=== PATIENT | female | born 1980 | race Caucasian/White ===

== ENCOUNTER 2020-08-14 14:25 | Outpatient (REF) | payer OTHER, SELFPAY ==
[2020-08-14 16:20] LABS: MANUAL DIFF FLAG NO
[2020-08-14 16:29] LABS: Basophils Percent Auto 0.8 % (0-2); Eosinophils Absolute Auto 0.1 X10*3/uL (0.0-0.4); Eosinophils Percent Auto 2.8 % (0-4); Hemoglobin 12.8 g/dl (12.0-16.0); Lymphocytes Absolute Auto 1.9 X10*3/uL (1.2-4.9); Lymphocytes Percent Auto 40.1 % (20-40); Mean Corpuscular HGB Conc 33.7 g/dl (31.0-35.0); Mean Corpuscular Hemoglobin 30.5 pg (27.0-33.0); Mean Corpuscular Volume 90.7 fL (80-98); Mean Platelet Volume 10.7 fL (9.4-12.3); Monocytes Absolute Auto 0.3 X10*3/uL (0.1-1.2); Neutrophils Absolute Auto 2.3 X10*3/uL (2.0-8.3); Neutrophils Percent Auto 49.3 % (45-73); Platelet Count 273 X10*3/uL (160-400); Red Blood Count 4.19 X10*6/uL (4.20-5.50); Red Cell Distribution Width 12.4 % (11.0-16.0); White Blood Count 4.7 X10*3/uL (4.8-10.8)
[2020-08-16 14:37] LABS: Immunoglobulin G 634 mg/dL (600-1640)
== END 2020-08-14 14:26 | disposition home or self-care (01) ==
LOC: HO.LAB 14:25
PROVIDERS: PCP Internal Medicine; Visit Provider Internal Medicine Pulmonary Disease
DX: Z91.09 Other allergy status, other than to drugs and biological substances (principal); J18.9 Pneumonia, unspecified organism; J32.9 Chronic sinusitis, unspecified; E53.8 Deficiency of other specified B group vitamins; J44.9 Chronic obstructive pulmonary disease, unspecified
CPT/HCPCS: 36415; 82784; 82785; 85025; 86003; 99202

== ENCOUNTER 2020-10-02 08:04 | Outpatient (REF) | payer OTHER, SELFPAY ==
--- NOTE | 2020-10-02 14:51 | PFT_ITS ---
INDICATION: COPD. SPIROMETRY: The FEV1 to FVC of 75% with an FEV1 of 3.28 L which is 113% predicted and FVC of 4.28 L which is 123% predicted. Post bronchodilator, the patient did have a trend response to bronchodilators with an improvement in the FEV1 by 10%. To note, the pre FEV1 to FVC was 69% suggesting reversible obstruction. The maximum voluntary ventilation 116% predicated. Lung volumes: Total lung capacity is 127% of predicted and a residual volume of 134% predicted. DIFFUSION CAPACITY: DLCO of 100% predicted. COMPARISON: None. INTERPRETATION: There appears to be reversible obstructive ventilatory defect consistent with the diagnosis of asthma. The patient does have evidence of small airway disease which also could be attributed to asthma. Maximal voluntary ventilation within normal limits. The patient also has significant air trapping and hyperinflation due to her obstructive airway disease. Diffusion capacity is within normal limits. Clinical correlation warranted. MD LULU Infante/MARIAM / [id number]
== END 2020-10-02 08:05 | disposition home or self-care (01) ==
LOC: HO.RESP 08:04
PROVIDERS: Visit Provider Internal Medicine Pulmonary Disease
DX: J44.9 Chronic obstructive pulmonary disease, unspecified (principal)
CPT/HCPCS: 94060; 94727; 94729; 99212

== ENCOUNTER 2021-02-16 09:38 | Outpatient (REF) | payer OTHER, SELFPAY ==
[2021-02-18 09:05] LABS: Folate 11.6 ng/mL (> or = 4.0); Vitamin B12 226 pg/mL (200-900)
[2021-02-20 21:48] LABS: Intrinsic Factor Antibodies Negative (Negative)
[2021-02-21 11:32] LABS: Parietal Cell Antibody <=20.0 Unit (<=20.0)
== END 2021-02-16 09:39 | disposition home or self-care (01) ==
LOC: HO.LAB 09:38
PROVIDERS: PCP Internal Medicine; Visit Provider Internal Medicine
DX: E53.8 Deficiency of other specified B group vitamins (principal)
CPT/HCPCS: 36415; 82607; 82746; 83516; 86340

== ENCOUNTER 2021-08-26 10:14 | Outpatient (REF) | payer OTHER, SELFPAY ==
--- NOTE | 2021-08-26 10:18 | ECG_ITS ---
Test Reason : palpitations Blood Pressure : / mmHG Vent. Rate : 055 BPM Atrial Rate : 055 BPM P-R Int : 122 ms QRS Dur : 080 ms QT Int : 424 ms P-R-T Axes : 071 077 076 degrees QTc Int : 405 ms Sinus bradycardia Otherwise normal ECG No previous ECGs available Referred By: Mandy Stovall Electronically Signed By:HARRIETT HILLIARD MD
== END 2021-08-26 10:15 | disposition home or self-care (01) ==
LOC: HO.LAB 10:14
PROVIDERS: PCP Internal Medicine; Visit Provider Internal Medicine
DX: R00.2 Palpitations (principal); R00.1 Bradycardia, unspecified; M79.621 Pain in right upper arm; Z23 Encounter for immunization
CPT/HCPCS: 93005

== ENCOUNTER 2021-08-28 08:34 | Outpatient (REF) | payer OTHER, SELFPAY ==
[2021-08-28 11:30] LABS: MANUAL DIFF FLAG NO
[2021-08-28 11:42] LABS: Basophils Percent Auto 0.6 % (0-2); Eosinophils Absolute Auto 0.2 X10*3/uL (0.0-0.4); Eosinophils Percent Auto 2.8 % (0-4); Hematocrit 40.5 % (37.0-47.0); Hemoglobin 13.6 g/dl (12.0-16.0); Imm Gran Abs Auto 0.01 X10*3/uL (0.00-0.03); Imm Gran Pct Auto 0.1 % (0.0-0.4); Lymphocytes Absolute Auto 2.1 X10*3/uL (1.2-4.9); Mean Corpuscular HGB Conc 33.6 g/dl (31.0-35.0); Mean Corpuscular Hemoglobin 30.1 pg (27.0-33.0); Mean Corpuscular Volume 89.6 fL (80.0-98.0); Mean Platelet Volume 10.3 fL (9.4-12.3); Monocytes Absolute Auto 0.4 X10*3/uL (0.1-1.2); Monocytes Percent Auto 5.3 % (2-11); Neutrophils Absolute Auto 4.4 x10*3/uL (2.0-8.3); Neutrophils Percent Auto 62.2 % (45-73); Platelet Count 256 X10*3/uL (160-400); Red Blood Count 4.52 X10*6/uL (4.20-5.50); Red Cell Distribution Width 12.6 % (11.0-16.0); White Blood Count 7.1 X10*3/uL (4.8-10.8)
[2021-08-28 12:05] LABS: Alanine Aminotransferase 13 U/L (0-31); Albumin Level 4.7 g/dL (3.5-5.0); Alkaline Phosphatase 46 U/L (39-117); Anion Gap 15 (12-20); Aspartate Amino Transferase 15 U/L (5-31); Bilirubin Total 0.5 mg/dL (0.0-1.0); Blood Urea Nitrogen 13 mg/dL (9-16); Calcium 9.4 mg/dL (8.4-10.2); Carbon Dioxide 23 mmol/L (22-29); Chloride 104 mmol/L (96-108); Cholesterol 171 mg/dL; Estimated Glomerular Filt Rate > 60; Glucose Fasting 93 mg/dL (60-99); HDL Cholesterol 63 mg/dL; LDL Cholesterol Calculated 90 mg/dl; Potassium 4.5 mmol/L (3.3-5.1); Sodium 137 mmol/L (135-145); Total Protein 6.7 g/dL (6.5-8.0); Triglycerides 91 mg/dL
[2021-08-28 12:19] LABS: TSH reflex Free T4 (Prenatal) 0.71 uIU/mL (0.32-4.0)
[2021-08-28 12:34] LABS: Folate 10.2 ng/mL (> or = 4.0); Vitamin B12 231 pg/mL (200-900)
== END 2021-08-28 08:35 | disposition home or self-care (01) ==
LOC: HO.HMGCLDS 08:34
PROVIDERS: PCP Internal Medicine; Visit Provider Internal Medicine
DX: R00.2 Palpitations (principal); E53.8 Deficiency of other specified B group vitamins; D72.819 Decreased white blood cell count, unspecified
CPT/HCPCS: 36415; 80053; 80061; 82607; 82746; 85025

== ENCOUNTER 2021-09-11 14:18 | Outpatient (REF) | payer OTHER, SELFPAY ==
--- NOTE | ~2021-09-11 | MM_ITS ---
EXAMINATION: MM DIAGNOSTIC DIGITAL BREAST TOMOSYNTHESIS, BILATERAL US DIAGNOSTIC ULTRASOUND BREAST, RIGHT CLINICAL INFORMATION: Right breast fullness posterior upper outer quadrant for approximately 2 years. No prior breast imaging. Age 41. No known family history breast cancer. The lifetime risk of breast cancer based on the Tyrer-Cuzick Model is 7%. COMPARISON: None (current study represents initial baseline exam). TECHNIQUE: Digital breast tomosynthesis is performed in both the craniocaudal and mediolateral oblique views along with computer-aided detection (CAD). Synthesized 2D images are generated from the tomosynthesis. Ultrasound upper outer quadrant right breast is performed along with imaging of the axilla. Grayscale imaging and color Doppler are performed without and with harmonics. FINDINGS: There are scattered areas of fibroglandular density (ACR BI-RADS breast composition Category b). There are bilateral implants. The implant contours are smooth. There is no mass or architectural abnormality. No abnormal calcifications. The skin contours are smooth. No skin thickening or coarsening of the Michael's ligaments. The axilla are unremarkable. Ultrasound demonstrates no cystic or solid mass or architectural abnormality. No focal duct ectasia. No lymphadenopathy. No skin thickening or edema tracking in soft tissue planes. Results are discussed with the patient at time of visit. MM/MM tomosynthesis diag imp BI IMPRESSION: No mammographic evidence of malignancy or inflammatory changes. Unremarkable right ultrasound. ASSESSMENT: BI-RADS 1: Negative RECOMMENDATION: 1. Patient should be managed based on the clinical impression. If clinically indicated, further evaluation may be considered with surgical consult. Decision to proceed with biopsy should be based on clinical grounds and degree of clinical concern. 2. Otherwise, routine annual screening mammography. This patient's information was entered into a reminder system with a target due date for their next mammogram.
== END 2021-09-11 14:19 | disposition home or self-care (01) ==
LOC: HO.MAMMO 14:18
PROVIDERS: PCP Internal Medicine; Visit Provider Internal Medicine
DX: N63.11 Unspecified lump in the right breast, upper outer quadrant (principal)
CPT/HCPCS: 76642; 77062; 77066

== ENCOUNTER → 2021-09-12 11:04 | Outpatient (REF) | payer OTHER, SELFPAY ==
--- NOTE | 2021-09-12 11:07 | HM_ITS ---
Conclusion: 1. Patient was monitored for total period of 6 days and 23 hours 2. Baseline was normal sinus rhythm with average heart rate 81 beats per minute 3. No significant pauses or bradycardia noted 4. No significant tachycardia noted 5. Overall 55 PACs accounting for less than 0.01% account for very rare PACs 6. patient reported 16 total events all of which correlated with sinus rhythm MTDD
== END ==
LOC: HO.CARD 11:04
PROVIDERS: Visit Provider Internal Medicine
DX: R00.2 Palpitations (principal)
CPT/HCPCS: 93242

== ENCOUNTER 2021-10-07 18:09 | Outpatient (REF) | payer OTHER, SELFPAY ==
[2021-10-07 18:37] LABS: Amphetamine Screen Urine Not Detected (Not Detect); Barbiturates, Urine Not Detected (Not Detect); Benzodiazepines Screen Urine Not Detected (Not Detect); Cannabinoid Screen Urine Not Detected (Not Detect); Cocaine Screen Urine Not Detected (Not Detect); Fentanyl, urine Not Detected (Not Detect); Opiate Screen Urine Not Detected (Not Detect); Phencyclidine Screen Urine Not Detected (Not Detect)
[2021-10-10 07:27] LABS: Codeine, Ur NEGATIVE; Hydrocodone, Ur NEGATIVE; Oxycodone, Ur NEGATIVE
[2021-10-10 07:28] LABS: Hydromorphone, Ur NEGATIVE; Morphine, Ur NEGATIVE; Oxymorphone, Ur NEGATIVE
[2021-10-10 07:29] LABS: Norhydrocodone, Ur NEGATIVE; Noroxycodone, Ur NEGATIVE
[2021-10-10 07:30] LABS: Alprazolam, GCMS Urine NEGATIVE; Lorazepam GCMS Urine NEGATIVE; Nordiazepam, GCMS Urine NEGATIVE; Oxazepam, GCMS Urine NEGATIVE
[2021-10-10 07:31] LABS: Alphahydroxytriazolam, GCMS Ur NEGATIVE; Temazepam, GCMS Urine NEGATIVE
[2021-10-10 07:32] LABS: Alphahydroxymidazolam,GCMS Ur NEGATIVE
[2021-10-10 07:33] LABS: Aminoclonazepam, GCMS Urine 27; Flurazepam Metabolite,GCMS Ur NEGATIVE
== END 2021-10-07 18:10 | disposition home or self-care (01) ==
LOC: HO.LNP 18:09
PROVIDERS: Visit Provider Internal Medicine
DX: F41.9 Anxiety disorder, unspecified (principal); F41.1 Generalized anxiety disorder; J45.50 Severe persistent asthma, uncomplicated; Z91.09 Other allergy status, other than to drugs and biological substances
CPT/HCPCS: 80307; 80346; 80364; 80365

== ENCOUNTER → 2021-10-10 13:13 | Outpatient (BNVA) | payer OTHER, SELFPAY | PROVIDERS: PCP Internal Medicine; Referring Provider Internal Medicine; Visit Provider Internal Medicine | DX: R00.2 Palpitations (principal); R07.89 Other chest pain; R06.02 Shortness of breath; F41.1 Generalized anxiety disorder | CPT/HCPCS: 99212 ==

== ENCOUNTER 2021-11-26 10:41 | Outpatient (REF) | payer OTHER, SELFPAY ==
[2021-11-26 12:38] LABS: HBS Num1 0.31 mIU/mL (0-7.99); HBc Num1 0.03 S/CO (0.00-0.79); Hepatitis B Core Antibody Nonreactive (Nonreactive); ~Hepatitis B Surface Antibody NONREACTIVE (Nonreactive)
[2021-11-26 12:42] LABS: HBsAGNum1 0.19 S/CO (0.00-0.99); Hepatitis B Surface Antigen Negative (Negative)
[2021-11-27 11:01] LABS: Mumps Virus IgG Antibody <9.00 AU/mL; Rubella IgG Antibody 3.33 Index; Rubeola IgG (Measles) <13.50 AU/mL
[2021-11-28 18:22] LABS: TS Negative Control Passed; TS Panel A 0; TS Panel B 0; TS Positive Control Passed; TSpotTB Negative (Negative)
== END 2021-11-26 10:42 | disposition home or self-care (01) ==
LOC: HO.HMGCLDS 10:41
PROVIDERS: Visit Provider Nurse Practitioner Family
DX: Z01.84 Encounter for antibody response examination (principal); Z11.1 Encounter for screening for respiratory tuberculosis
CPT/HCPCS: 36415; 86481; 86704; 86706; 86735; 86762; 86765; 86787; 87340

== ENCOUNTER → 2022-07-07 08:34 | Outpatient (BNVA) | payer SELFPAY | PROVIDERS: PCP Internal Medicine; Visit Provider Internal Medicine | DX: Z02.79 Encounter for issue of other medical certificate (principal) ==

== ENCOUNTER → 2022-07-24 12:50 | Outpatient (REF) | payer OTHER, SELFPAY ==
--- NOTE | 2022-07-24 12:58 | CA_ITS ---
Transthoracic Echocardiogram Patient (Last, First, Middle): Smitha Martinez, Gender: Female Date of : 1980 Age: 42 Procedure Date: 07/24/2022 Procedure Type: Transthoracic Echocardiogram Location: OP Height: 160.02 cm Weight: 61.24 kg BSA: 1.64 m2 Heart Rate: 63 bpm BP: 100 / 70 mmHg Payer Specialist: PAT Buckner MD: Mandy Stovall MD [employer] Media Specialist: Jamie Jones MD Symptoms: R01.1 - Cardiac murmur, unspecified Study Quality: Adequate ECG Rhythm: Sinus Conclusions: - Normal study Findings Left Ventricle Normal left ventricular size, thickness, and systolic function. The visually estimated ejection fraction is between 60-65%. Diastolic function is normal for age. Right Ventricle Normal right ventricular cavity size and systolic function. Atria Both atria are normal in size. There is no evidence of interatrial shunt. Aortic Valve Normal aortic valve structure and function. There is no aortic valve stenosis. There is no aortic valve regurgitation. Mitral Valve Normal mitral valve structure and function. There is trace mitral valve regurgitation. There is no mitral valve stenosis. Pulmonic Valve The pulmonic valve is likely normal. Tricuspid Valve Normal tricuspid valve structure. There is trace tricuspid valve regurgitation. The right ventricular systolic pressure is normal. The right ventricular systolic pressure is 13 mmHg. Normal right atrial pressure. There is no evidence of pulmonary hypertension. Great Vessels All visible segments of the aorta are normal in size. The pulmonary artery was not well visualized. Venous The inferior vena cava is normal in size and collapses greater than 50% with inspiration. Pericardium/Pleural There is no evidence of pericardial effusion. Prior Study Comparison No significant change compared to prior study dated: 11/02/2019. Measurements 2D Linear Measurements IVSd: 0.70 0.6-0.9/0.6-1.0 cm LVIDd: 3.97 3.9-5.3/4.2-5.9 cm LVIDd Index: 2.42 2.4-3.2/2.2-3.1 cm/m2 LVIDs: 2.26 2.0-3.6 cm LVPWd: 0.81 0.7-1.1 cm LA Diam: 3.10 2.7-3.8/3.0-4.0 cm LAIDs Index: 1.89 1.5-2.3 cm/m2 LV Mass: 106.45 67-162/88-224 g LV Mass Index: 64.91 43-95/49-115 g/m2 LVOT Diam: 1.90 3.0+(-)1.3 cm 2D Systolic Function EF 4C: 61.50 >55% EF 2C: 62.70 >55% EF BiP: 62.60 >55% Mitral Valve MV Pk E: 0.82 MV PK A: 0.72 MV Decel Time: 188.00 E/A: 1.10 E'Lateral: 12.80 E'Medial: 13.20 E/E' Med: 6.20 E/E' Lat: 6.40 PHT: 55.00 MVA PHT: 4.00 Decel Reagan: 4.36 Aortic Valve AoV Pk Ian: 1.43 AoV Mn Ian: 0.98 AoV VTI: 0.32 AoV Pk Grad: 8.00 Aov Mn Grad: 5.00 NIGEL Cont.VTI: 1.71 LVOT LVOT Pk Ian: 0.97 LVOT Mn Ian: 0.67 LVOT VTI: 0.19 LVOT Pk Grad: 4.00 LVOT Mn Grad: 2.00 LVOT Diam: 1.90 LVOT Area: 2.84 Diastolic Function MV Pk E: 0.82 MV Pk A: 0.72 E/A: 1.10 E'Medial: 13.20 E/E' Med: 6.20 E' Laterial: 12.80 E/E' Lat: 6.40 Right Ventricle TAPSE (mm): 26.10 TVS' Ian: 12.80 Tricuspid Valve TR Pk Ian: 1.59 TR Pk Grad: 10.00 RA Press: 3.00 RVSP: 13.00 Great Vessels Aorta Sinus of Valsalva: 3.00 2.0-3.5 cm Ao Asc: 3.00 2.1-3.4 cm Pulmonary Valve PV Pk Ian: 1.03 Peak PV Grad: 4.00 Updated in Other Vendor System with Status of Final Jamie Jones MD electronically signed on 07/25/2022 1:44:48 PM with status of Final
== END ==
LOC: HO.CARD 12:50
PROVIDERS: PCP Internal Medicine; Visit Provider Internal Medicine
DX: R01.1 Cardiac murmur, unspecified (principal)
CPT/HCPCS: 93306

== ENCOUNTER 2022-07-30 13:52 | Outpatient (REF) | payer OTHER, SELFPAY ==
--- NOTE | 2022-07-30 08:30 | EMG_ITS ---
Please see scanned EMG / Nerve Conduction Report. MTDD
== END 2022-07-30 13:53 | disposition home or self-care (01) ==
LOC: HO.NEURO 13:52
PROVIDERS: PCP Internal Medicine; Visit Provider Internal Medicine
DX: R20.0 Anesthesia of skin (principal)
CPT/HCPCS: 95885; 95909

== ENCOUNTER 2023-07-30 10:27 | Outpatient (AMB) | payer OTHER, SELFPAY ==
--- NOTE | 2023-07-30 10:27 | MHC.PC.OV ---
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 Accompanied by: Self / Same As Patient Allergies hydroxyzine Adverse Reaction (Intermediate, Verified 07/30/23 10:36) sweating Medication List - Last Reconciled 07/30/23 by Mandy Stovall MD No Known Home Meds Tobacco use date assessed: 07/30/23 Dental Screening Dental Screen Date: 07/30/23 Did you have a dental visit in the last 12 months?: Yes Did you have a dental problem in the last 6 months where you did not have access to dental care?: No Was dental information given to patient?: Patient has dentist HPI HPI Comments History of Present Illness Details This is a 43-year-old female that comes for her physical exam. She complains of muscle cramps in right leg that makes the foot invert. She also has skin lesions and would like to see dermatology. She also has right eye which deviates and wants to see Ophthalmology. She has smoke for 39 years and would like lung cancer screening. I told her that it started at 48 years old but she insists. Last mammogram was 2020 and she will call for an appointment. Last Pap smear was less than a year ago at [facility] as per patient and was normal. She has 0 [facility] Gastroenterology and they schedule colonoscopy for December 2023. She is a little anxious and says that winter is more difficult for her. [facility] Medical History (Updated 07/30/23 @ 11:03 by Mandy Stovall MD) Asthma-COPD overlap syndrome Anxiety Insomnia CALLIE (generalized anxiety disorder) Mild recurrent major depression Pain in right axilla Leukopenia Palpitations Celiac disease Blurry vision Vitamin B 12 deficiency Recurrent sinus infections Surgical History H/O breast augmentation Family History (Updated 07/30/23 @ 10:41 by Mandy Stovall MD) Father Diabetes Hypertension CVD (cardiovascular disease) Myocardial infarction Mother Hypertension CVD (cardiovascular disease) Depression Mental health disorder Myocardial infarction Brother In good health Brother In good health Brother Bipolar 1 disorder Sister In good health Substance use disorder Sister In good health Sister In good health Son In good health Daughter In good health Social History (Updated 07/30/23 @ 10:42 by Mandy Stovall MD) Housing: House Alcohol intake: current Alcohol intake frequency: a few times a month Alcohol type: wine and hard liquor Patient Tobacco Use Status: Current everyday Tobacco user Tobacco use type: Cigarette Cigarettes Per Day: 6 e-Cigarette/Vaping Use: Never Used Second Hand Smoke Exposure: No service: No Current occupational status: employed Current occupational exposures/hazards: No Cognitive needs: No Hearing needs: No Vision needs: Yes (glasses) Questionnaire PHQ-9 Over the last 2 weeks, how often have you been bothered by any of the following problems? 1. Little interest or pleasure in doing things: not at all 2. Feeling down, depressed, or hopeless: several days 3. Trouble falling or staying asleep, or sleeping too much: not at all 4. Feeling tired or having little energy: not at all 5. Poor appetite or overeating: several days 6. Feeling bad about yourself - or that you are a failure or have let yourself or your family down: not at all 7. Trouble concentrating on things, such as reading the newspaper or watching television: not at all 8. Moving or speaking so slowly that other people could have noticed. Or the opposite - being so fidgety or restless that you have been moving around a lot more than usual: not at all 9. Thoughts that you would be better off or of hurting yourself in some way: not at all Total score: 2 Depression Screening Interpretation: Negative Depression Screening Done: Yes 87534 - PHQ-9 Billing: Yes Source: Developed by Drs. Jeremiah Layne, Maine Khan, Henry Patel and colleagues, with an educational abdoulaye from [employer]. Thrive Questionnaire Date Thrive assessed: 07/30/23 I am a: Patient What is your living situation today?: I have a steady place to live Within the past 12 months, did the food you bought not last and you didn't have the money to get more?: Never true Within the past 12 months, did you worry whether your food would run out before you got money to buy more?: Never true Do you have trouble paying for medicines?: No Do you have trouble getting transportation to medical appointments?: No Do you have trouble paying your heating and electricity bill?: No Do you have trouble taking care of your child, family member or friend?: No Do you have trouble with day-to-day activities such as bathing, preparing meals, shopping, managing finances, etc.?: No Are you currently unemployed and looking for a job?: No Are you interested in more education?: No Please select the resources that you would like help with: None Currently or been in a relationship where the following occur: no concerns reported AUDIT C Alcohol Use Questionnaire (AUDIT-C) 1. How often do you have a drink containing alcohol?: Never Total Score: 0 CALLIE-7 AMB Questionnaire CALLIE-7 Date CALLIE - 7 assessed: 07/30/23 Feeling nervous, anxious, or on edge: 1 = Several days Not being able to stop or control worryin = Not at all Worrying too much about different things: 0 = Not at all Trouble relaxin = Several days Being so restless that it is hard to sit still: 0 = Not at all Becoming easily annoyed or irritable: 0 = Not at all Feeling afraid as if something awful might happen: 0 = Not at all Total CALLIE-7 score (0-4 normal; 5-9 mild; 10-14 moderate; 15-21 severe): 2 Source: Developed by Drs. Jeremiah Layne, Maine Khan, Henry Patel and colleagues, with an educational abdoulaye from [employer]. CALLIE-7 Assessment Billing CALLIE-7 Assessment Tool: CALLIE-7 Assessment 84228 Review of Systems Const All systems reviewed & are unremarkable except as noted in HPI and below Eyes Reports no additional complaints, Denies change in vision and Denies other visual disturbances Card Denies chest pain at rest, Denies chest pain with activity, Denies edema, Denies irregular heart rhythm, Denies claudication, Denies dyspnea, Denies dyspnea on exertion, Denies orthopnea, Denies paroxysmal nocturnal dyspnea and Denies slow heart rate Resp Denies cough, Denies dyspnea and Denies dyspnea on exertion GI Denies abdominal pain, Denies change in bowel habits, Denies excessive flatus, Denies nausea and Denies vomiting Denies urinary incontinence, Denies urinary hesitancy and Denies urinary urgency Musc Denies abnormal gait, Denies atrophy, Denies deformity, Denies limited range of motion and Reports muscle cramps Skin/Breast Denies bleeding lesions, Denies changing lesions and Denies rash Neuro Denies abnormal gait and Denies lack of coordination Psych Reports anxiety Physical exam (Primary Care) Vital Signs: Last Vital Signs BP 110/70 07/30/23 10:28 BMI result Body Mass Index 22.7 Tobacco/Smoking Status: Tobacco use Status Tobacco use date assessed 07/30/23 07/30/23 10:35 Patient Tobacco Use Status Current everyday Tobacco 07/30/23 10:42 Tobacco use type Cigarette 07/30/23 10:42 e-Cigarette/Vaping Use Never Used 07/30/23 10:42 PHQ-9: PHQ-9 Score PHQ-9: Total score 2 07/30/23 10:44 Depression Screening Interpretation: Negative Thrive Assessment: Date of Thrive Assessment Date Thrive assessed 07/30/23 07/30/23 10:35 Currently or been in a relationship where the following occur: no concerns reported Const Orientation/consciousness: patient oriented x3 HENMT Head: Yes normal to inspection, Yes normocephalic and Yes atraumatic Ears: external ears normal Eyes General: appearance normal, both eyes and all related structures Eyelids: Yes eyelids normal Conjunctivae: conjunctivae normal Neck Neck: Yes normal visual inspection and Yes supple Resp Effort & Inspection: normal respiratory effort Auscultation: clear to auscultation bilaterally Cardio Jugular venous distension: no JVD Rate: regular rate Rhythm: regular rhythm Heart sounds: S1 normal heart sound present and S2 normal heart sound present GI Inspection: Yes normal to inspection Palpation (GI): Soft to palpation and nontender Auscultation: normal bowel sounds Skin General skin exam: no rashes or lesions noted Neuro General: patient oriented x3 and no focal motor deficits Extrem General: Yes full ROM Psych Appearance: grossly normal Office Procedures Flu Questionnaire Does the patient have a severe egg allergy?: No Immunizations flu vacc [id number] 6mos up(PF) 60 mcg(15 mcgx4)/0.5 mL IM syringe Performing Provider: Mandy Stovall MD Performing Location: [facility] Documented (not given) by: MERLYN Kumar on 07/30/23 10:36 Reason Not Given: Patient Refused Assessment and Plan Assessment & Plan (1) Physical exam: Code(s): Z00.00 - Encounter for general adult medical examination without abnormal findings Plan: Repeat in a year. Orders: Orders Lipid Panel Today Z00.00 - Encounter for general adult medical examination without abnormal findings Influenza [id number] Immunization Today Z23 - Encounter for immunization Magnesium Today R25.2 - Cramp and spasm Comprehensive [place]. 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
[2023-07-30 10:28] VITALS: BP 110/70; BMI 22.7
== END 2023-07-30 10:55 | disposition home or self-care (01) ==
LOC: HO.HMGH 10:27
PROVIDERS: PCP Internal Medicine; Visit Provider Internal Medicine
DX: Z00.00 Encounter for general adult medical examination without abnormal findings (principal)
CPT/HCPCS: 99396

== ENCOUNTER 2023-09-09 08:49 | Outpatient (AMB) | payer OTHER, SELFPAY ==
[2023-09-09 09:27] VITALS: BP 116/70; PULSE 71; TEMP 36.6; O2SAT 71; BMI 23.2
--- NOTE | 2023-09-09 09:27 | AM.OFFWIN_ITS ---
Intake Vital Signs 09/09/23 09:27 Height 5 ft 3 in Weight 131 lb BMI 23.2 BP 116/70 Blood Pressure Location Lt brachial Position Sitting Pulse 71 Pulse Source Pulse Oximeter Temp 97.8 F Temp Source Temporal Artery Scan Pulse Oximetry (%) 71 L Oxygen Delivery Method Room Air Intake Visit Reasons: EP ?Sinus [id number] Intake Note: pt is here today for sinus started 2 weeks ago Patient Tobacco Use Status: Current everyday Tobacco user Allergies hydroxyzine Adverse Reaction (Intermediate, Verified 09/09/23 09:58) sweating Medication List - Last Reconciled 09/09/23 by NGOZI Glass-ANABELL No Known Home Meds Do you need a note to return to daycare/school/sports/work: No HPI HPI Comments History of Present Illness Details here today w c/o recurrent sinusitis reports sx present for 2 weeks nasal congestion, pain, pnd, sore throat, ear pain has used otc dayquil, nyquil w/o relief admits to using friends exp amoxicillin for the last few days, last dose last night + current smoker denies fever, chills, headache, chest pain, sob. [facility] Medical History (Updated 09/09/23 @ 10:01 by SHILPA Glass) Asthma-COPD overlap syndrome Anxiety Insomnia CALLIE (generalized anxiety disorder) Mild recurrent major depression Pain in right axilla Leukopenia Palpitations Celiac disease Blurry vision Vitamin B 12 deficiency Recurrent sinus infections Surgical History H/O breast augmentation Family History (Updated 07/30/23 @ 10:41 by Mandy Stovall MD) Father Diabetes Hypertension CVD (cardiovascular disease) Myocardial infarction Mother Hypertension CVD (cardiovascular disease) Depression Mental health disorder Myocardial infarction Brother In good health Brother In good health Brother Bipolar 1 disorder Sister In good health Substance use disorder Sister In good health Sister In good health Son In good health Daughter In good health Social History (Updated 07/30/23 @ 10:42 by Mandy Stovall MD) Housing: House Alcohol intake: current Alcohol intake frequency: a few times a month Alcohol type: wine and hard liquor Patient Tobacco Use Status: Current everyday Tobacco user Tobacco use type: Cigarette Cigarettes Per Day: 6 e-Cigarette/Vaping Use: Never Used Second Hand Smoke Exposure: No service: No Current occupational status: employed Current occupational exposures/hazards: No Cognitive needs: No Hearing needs: No Vision needs: Yes (glasses) Review of Systems Const All systems reviewed & are unremarkable except as noted in HPI and below Physical Exam Vital Signs: Last Vital Signs Temp 97.8 F 09/09/23 09:27 Pulse 71 09/09/23 09:27 BP 116/70 09/09/23 09:27 Pulse Ox 71 L 09/09/23 09:27 Oxygen Delivery Method Room Air 09/09/23 09:27 BMI result Body Mass Index 23.2 Const Other: awake alert nad conjunctiva clear bilat TM intact clear bilat Nares patent, turbinates pale, edematous, + frontal and maxillary sinus tenderness to palp bilat worse on L pharynx + erythema, no exudate no ac adenopathy RRR LS CTAB Assessment & Plan Assessment & Plan (1) Sinusitis: Code(s): J32.9 - Chronic sinusitis, unspecified Qualifiers: Sinusitis location: pansinusitis Chronicity: acute Recurrence: recurrent Qualified Code(s): J01.41 - Acute recurrent pansinusitis Plan: . Plan . Medications: New azithromycin For 250 mg dose pack: take 500 mg today (day 1), then 250 mg for 4 days (days 2-5) PO 5 days 6 tabs 0RF prednisone 20 mg PO DAILY 5 days 5 tabs 0RF Patient Instructions: states does well on above, sent in. avoid nasal decongestants and sprays. ok for flonase and/or saline Coding Level of Care Code Est Pt Level 3 (03224) Diagnoses Acute recurrent pansinusitis J01.41 Sinusitis location: pansinusitis Chronicity: acute Recurrence: recurrent
== END 2023-09-09 09:59 | disposition home or self-care (01) ==
PROVIDERS: PCP Internal Medicine; Visit Provider Nurse Practitioner Family
DX: J01.41 Acute recurrent pansinusitis (principal)
CPT/HCPCS: 99213

== ENCOUNTER 2023-10-27 07:59 | Outpatient (REF) | payer OTHER, SELFPAY ==
[2023-10-27 11:19] LABS: MANUAL DIFF FLAG NO
[2023-10-27 11:23] LABS: Basophils Percent Auto 0.5 % (0-2); Eosinophils Absolute Auto 0.2 X10*3/uL (0.0-0.4); Eosinophils Percent Auto 2.9 % (0-4); Hemoglobin 12.9 g/dl (12.0-16.0); Imm Gran Abs Auto 0.01 X10*3/uL (0.00-0.03); Imm Gran Pct Auto 0.2 % (0.0-0.4); Lymphocytes Absolute Auto 1.3 X10*3/uL (1.2-4.9); Lymphocytes Percent Auto 22.9 % (20-40); Mean Corpuscular HGB Conc 33.1 g/dl (31.0-35.0); Mean Corpuscular Hemoglobin 29.8 pg (27.0-33.0); Mean Corpuscular Volume 90.1 fL (80.0-98.0); Mean Platelet Volume 10.5 fL (9.4-12.3); Monocytes Absolute Auto 0.4 X10*3/uL (0.1-1.2); Monocytes Percent Auto 7.2 % (2-11); Neutrophils Absolute Auto 3.8 x10*3/uL (2.0-8.3); Neutrophils Percent Auto 66.3 % (45-73); Platelet Count 245 X10*3/uL (160-400); Red Blood Count 4.33 X10*6/uL (4.20-5.50); Red Cell Distribution Width 12.8 % (11.0-16.0); White Blood Count 5.8 X10*3/uL (4.8-10.8)
[2023-10-27 11:36] LABS: Alanine Aminotransferase 17 U/L (0-31); Albumin Level 4.2 g/dL (3.5-5.0); Alkaline Phosphatase 42 U/L (39-117); Anion Gap 12 (12-20); Aspartate Amino Transferase 15 U/L (5-31); Bilirubin Total 0.4 mg/dL (0.0-1.0); Blood Urea Nitrogen 13 mg/dL (9-16); Calcium 8.5 mg/dL (8.4-10.2); Carbon Dioxide 26 mmol/L (22-29); Chloride 107 mmol/L (96-108); Cholesterol 195 mg/dL (<200); Estimated Glomerular Filt Rate > 60; Glucose Fasting 89 mg/dL (60-99); HDL Cholesterol 74 mg/dL (>40); LDL Cholesterol Calculated 105 mg/dL (<100); Magnesium 1.9 mg/dL (1.6-2.6); Potassium 4.1 mmol/L (3.3-5.1); Sodium 141 mmol/L (135-145); Total Protein 6.5 g/dL (6.5-8.0); Triglycerides 81 mg/dL (<150)
== END 2023-10-27 08:00 | disposition home or self-care (01) ==
LOC: HO.HMGCLDS 07:59
PROVIDERS: PCP Internal Medicine; Visit Provider Internal Medicine
DX: Z00.00 Encounter for general adult medical examination without abnormal findings (principal); R25.2 Cramp and spasm; D64.9 Anemia, unspecified
CPT/HCPCS: 36415; 80053; 80061; 83735; 85025

== ENCOUNTER 2023-10-30 09:35 | Outpatient (AMB) | payer OTHER, SELFPAY ==
[2023-10-30 10:32] VITALS: BP 122/68; PULSE 77; TEMP 36.8; O2SAT 98; BMI 24.4
--- NOTE | 2023-10-30 10:32 | MHC.OFFWIV ---
Intake Vital Signs 10/30/23 10:32 Height 5 ft 3 in Weight 138 lb BMI 24.4 BP 122/68 Blood Pressure Location Lt brachial Position Sitting Pulse 77 Pulse Source Pulse Oximeter Temp 98.2 F Temp Source Temporal Artery Scan Pulse Oximetry (%) 98 Oxygen Delivery Method Room Air Intake Visit Reasons: EST/sinus pressure([phone]) Intake Note: pt is here today for sinus pressure started 3 weeks ago Patient Tobacco Use Status: Current everyday Tobacco user Allergies hydroxyzine Adverse Reaction (Intermediate, Verified 10/30/23 10:33) sweating Do you need a note to return to daycare/school/sports/work: No HPI HPI Comments History of Present Illness Details 43 y/o female patient who presents to walk in clinic with c/o sinus pressure x 3 weeks. FOR[facility]LY [facility], [facility] Medical History (Updated 10/02/23 @ 10:00 by Mandy Stovall MD) Asthma-COPD overlap syndrome Anxiety Insomnia CALLIE (generalized anxiety disorder) Mild recurrent major depression Pain in right axilla Leukopenia Palpitations Celiac disease Blurry vision Vitamin B 12 deficiency Recurrent sinus infections Surgical History H/O breast augmentation Family History (Updated 07/30/23 @ 10:41 by Mandy Stovall MD) Father Diabetes Hypertension CVD (cardiovascular disease) Myocardial infarction Mother Hypertension CVD (cardiovascular disease) Depression Mental health disorder Myocardial infarction Brother In good health Brother In good health Brother Bipolar 1 disorder Sister In good health Substance use disorder Sister In good health Sister In good health Son In good health Daughter In good health Social History (Updated 07/30/23 @ 10:42 by Mandy Stovall MD) Housing: House Alcohol intake: current Alcohol intake frequency: a few times a month Alcohol type: wine and hard liquor Patient Tobacco Use Status: Current everyday Tobacco user Tobacco use type: Cigarette Cigarettes Per Day: 6 e-Cigarette/Vaping Use: Never Used Second Hand Smoke Exposure: No service: No Current occupational status: employed Current occupational exposures/hazards: No Cognitive needs: No Hearing needs: No Vision needs: Yes (glasses) Review of Systems Const All systems reviewed & are unremarkable except as noted in HPI and below Physical Exam Vital Signs: Last Vital Signs Temp 98.2 F 10/30/23 10:32 Pulse 77 02/16/24 10:32 BP 122/68 10/30/23 10:32 Pulse Ox 98 10/30/23 10:32 Oxygen Delivery Method Room Air 10/30/23 10:32 BMI result Body Mass Index 24.4 Const General: comfortable and no acute distress HEENT Head: Yes normocephalic Ears: external ears normal and TM's normal bilaterally General nose exam: Normal nasal mucous membranes and turbinates present Face and sinus: Yes sinus tenderness Mouth: oropharynx normal and moist mucous membranes Throat: Yes uvula midline Resp Effort & Inspection: normal respiratory effort Auscultation: clear to auscultation bilaterally Cardio Rate: regular rate Rhythm: regular rhythm Assessment & Plan Assessment & Plan (1) Upper respiratory infection: Code(s): J06.9 - Acute upper respiratory infection, unspecified Qualifiers: URI type: acute nasopharyngitis (common cold) Qualified Code(s): J00 - Acute nasopharyngitis [common cold] Plan: - Warm fluids - Rest Acetaminophen for pain relief. Orders: Orders SARS-CoV2/FLU/RSV Today J00 - Acute nasopharyngitis [common cold] Medications: New azithromycin 500 mg PO DAILY 3 days 3 tabs 0RF J00 - Acute nasopharyngitis [common cold] Coding Level of Care Code Est Pt Level 3 (54456) Diagnoses Acute nasopharyngitis J00 URI type: acute nasopharyngitis (common cold) Time Spent (min) 15
== END 2023-10-30 11:44 | disposition home or self-care (01) ==
PROVIDERS: PCP Internal Medicine; Visit Provider Nurse Practitioner Family
DX: J00 Acute nasopharyngitis [common cold] (principal)
CPT/HCPCS: 99213

== ENCOUNTER 2023-10-30 13:38 | Outpatient (REF) | payer OTHER, SELFPAY ==
[2023-10-30 14:30] LABS: Influenza A PCR NEGATIVE (Negative); Influenza B PCR NEGATIVE (Negative); Resp Syncy Virus RNA Qual PCR POSITIVE (Negative); SARS COV2 PCR INHOUSE NEGATIVE (Negative)
== END 2023-10-30 13:39 | disposition home or self-care (01) ==
LOC: HO.LNP 13:38
PROVIDERS: Visit Provider Nurse Practitioner Family
DX: Z11.52 Encounter for screening for COVID-19 (principal); Z20.822 Contact with and (suspected) exposure to COVID-19; J00 Acute nasopharyngitis [common cold]
CPT/HCPCS: 0241U

== ENCOUNTER 2023-11-09 12:54 | Outpatient (REF) | payer OTHER, SELFPAY ==
--- NOTE | ~2023-11-09 | US_ITS ---
EXAMINATION: US SOFT TISSUE NECK CLINICAL INFORMATION: Localized swelling, mass and lump in the neck. COMPARISON: C-spine films dated 12/04/2016. TECHNIQUE: Ultrasound of the neck soft tissues is performed in region of the patient directed area of palpable lump in the anterior midline of the neck, superior to the thyroid gland with high- frequency noble-scale imaging and color Doppler. FINDINGS: In region of the patient's palpable lump in the midline of the upper neck, superior to the thyroid gland, normal lobules of tissue are noted without discrete focal cystic or solid mass seen. No disruption of the tissue planes is seen. US/US soft tiss head and/or neck IMPRESSION: No focal sonographic abnormality seen in region of the patient's palpable lump in the midline of the upper neck. Close clinical correlation and follow-up as clinically appropriate is recommended. Any further assessment of the patient's clinical findings should proceed based on clinical impression.
== END 2023-11-09 12:55 | disposition home or self-care (01) ==
LOC: HO.US 12:54
PROVIDERS: PCP Internal Medicine; Visit Provider Internal Medicine
DX: R22.1 Localized swelling, mass and lump, neck (principal)
CPT/HCPCS: 76536

== ENCOUNTER 2024-04-23 09:20 | Outpatient (AMB) | payer OTHER, SELFPAY ==
[2024-04-23 10:30] VITALS: BP 110/62; PULSE 61; TEMP 36.6; O2SAT 97
--- NOTE | 2024-04-23 10:30 | MHC.OFFWIV ---
Intake Vital Signs 04/23/24 10:30 Height 5 ft 3 in BP 110/62 Blood Pressure Location Lt brachial Position Sitting Pulse 61 Pulse Source Pulse Oximeter Temp 97.9 F Temp Source Oral Pulse Oximetry (%) 97 Oxygen Delivery Method Room Air Intake Visit Reasons: EP Bite Buttocks [phone] Intake Note: pt is here for c/o of a bite on buttocks, states its red and itchy and noticed its been a few days since it started. Patient Tobacco Use Status: Current everyday Tobacco user Allergies hydroxyzine Adverse Reaction (Intermediate, Verified 04/23/24 10:31) sweating Do you need a note to return to daycare/school/sports/work: No HPI EP Bite Buttocks [phone] HPI Details Patient is a 43-year-old female comes to the walk-in clinic complaining of possible insect bite, that is becoming red and itchy over the last few days. She also notices tender lymph nodes to her right groin area, and has associated fatigue. She reports that her right leg is usually her bad one , so she can not report if any pain to the leg is acute due to this issue. No report of weakness, numbness or tingling to the extremity. She denies fever chills, dizziness, cough, nausea vomiting or diarrhea, or other significant associated symptoms. FOR[facility]LY [facility] Medical History Asthma-COPD overlap syndrome Anxiety Insomnia CALLIE (generalized anxiety disorder) Mild recurrent major depression Pain in right axilla Leukopenia Palpitations Celiac disease Blurry vision Vitamin B 12 deficiency Recurrent sinus infections Surgical History H/O breast augmentation Family History Father Diabetes Hypertension CVD (cardiovascular disease) Myocardial infarction Mother Hypertension CVD (cardiovascular disease) Depression Mental health disorder Myocardial infarction Brother In good health Brother In good health Brother Bipolar 1 disorder Sister In good health Substance use disorder Sister In good health Sister In good health Son In good health Daughter In good health Social History Housing: House Alcohol intake: current Alcohol intake frequency: a few times a month Alcohol type: wine and hard liquor Patient Tobacco Use Status: Current everyday Tobacco user Tobacco use type: Cigarette Cigarettes Per Day: 6 e-Cigarette/Vaping Use: Never Used Second Hand Smoke Exposure: No service: No Current occupational status: employed Current occupational exposures/hazards: No Cognitive needs: No Hearing needs: No Vision needs: Yes (glasses) Review of Systems Const All systems reviewed & are unremarkable except as noted in HPI and below Physical Exam Vital Signs: Last Vital Signs Temp 97.9 F 04/23/24 10:30 Pulse 61 04/23/24 10:30 BP 110/62 04/23/24 10:30 Pulse Ox 97 04/23/24 10:30 Oxygen Delivery Method Room Air 04/23/24 10:30 Skin Other: Right inguinal lymphadenopathy apparent Lesions: lesion noted Full body images: 1. 2. To lesions approximately a cm in diameter each to the right buttock, with erythema edema and warmth surrounding and yellowish crusting eschar covering each lesion. Assessment & Plan Assessment & Plan (1) Skin lesion: Code(s): L98.9 - Disorder of the skin and subcutaneous tissue, unspecified Plan: Patient is a 43-year-old female who comes to the walk-in clinic with lesions to her right buttock area, and right inguinal lymphadenopathy. She suspects that she got bit by a spider, and worries about brown recluse bite wounds, as she had been outside at a [employer] prior to finding the lesions. However she does not remember an acute onset of pain that would lead to being bit acutely, unless it happened in her sleep. She also denies any symptoms to the buttock prior to the lesions appearing, so it is unlikely that this is due to shingles. Her lesions appear today as erythematous plaques that are covered with an eschar, and mild erythema edema and warmth surrounding. However photo that she shows of the wound prior to coming in today looks more vesicular and herpetic in nature. Also her systemic symptoms of profound fatigue is more associated with primary viral infection. She reports that she is immunocompromised as she has celiacs disease, and we discussed that immuno compromising conditions do pose greater risk for infections. As I am not entirely sure if the wounds are a viral lesion or a cellulitis, I advised that she start both an antibiotic and an antiviral medication. It is possible that since she has had this for a few days now, that it is too late for an antiviral to have benefit. I also ordered a CBC and HSV labs, which are pending. Due to her lymphadenopathy on that side, and systemic symptoms, I advised that she have follow-up with her primary care early next week. She sees Dr. Mandy Fish who is affiliated with [facility], and I will forward this note to her. Patient knows to follow up herself if symptoms persist or worsen, or to go to the emergency department with worrisome symptoms. Orders: Orders Complete Blood Count Auto Diff Today L03.90 - Cellulitis, unspecified Herpes Simplex Virus Ab IgG Today L98.9 - Disorder of the skin and subcutaneous tissue, unspecified Medications: New valacyclovir 1,000 mg PO TID 21 tabs 0RF 7 days doxycycline hyclate 100 mg PO BID 20 caps 0RF 10 days Coding Level of Care Code Est Pt Level 4 (16860) Diagnoses Skin lesion L98.9
== END 2024-04-23 12:01 | disposition home or self-care (01) ==
PROVIDERS: PCP Internal Medicine; Visit Provider Physician Assistant Medical
DX: L98.9 Disorder of the skin and subcutaneous tissue, unspecified (principal)
CPT/HCPCS: 99051; 99214

== ENCOUNTER 2024-04-23 11:40 | Outpatient (REF) | payer OTHER, SELFPAY ==
[2024-04-23 12:53] LABS: MANUAL DIFF FLAG NO
[2024-04-23 12:56] LABS: Basophils Absolute Auto 0.1 X10*3/uL (0.0-0.2); Basophils Percent Auto 0.9 % (0-2); Eosinophils Absolute Auto 0.2 X10*3/uL (0.0-0.4); Eosinophils Percent Auto 3.4 % (0-4); Hematocrit 38.5 % (37.0-47.0); Imm Gran Abs Auto 0.02 X10*3/uL (0.00-0.03); Imm Gran Pct Auto 0.3 % (0.0-0.4); Lymphocytes Absolute Auto 1.6 X10*3/uL (1.2-4.9); Lymphocytes Percent Auto 28.1 % (20-40); Mean Corpuscular HGB Conc 33.8 g/dl (31.0-35.0); Mean Corpuscular Hemoglobin 30.4 pg (27.0-33.0); Mean Platelet Volume 10.3 fL (9.4-12.3); Monocytes Absolute Auto 0.3 X10*3/uL (0.1-1.2); Monocytes Percent Auto 5.7 % (2-11); Neutrophils Absolute Auto 3.6 x10*3/uL (2.0-8.3); Neutrophils Percent Auto 61.6 % (45-73); Platelet Count 254 X10*3/uL (160-400); Red Blood Count 4.28 X10*6/uL (4.20-5.50); Red Cell Distribution Width 12.7 % (11.0-16.0); White Blood Count 5.8 X10*3/uL (4.8-10.8)
[2024-04-25 17:08] LABS: Herpes Simplex Type 1 IgG 2.43 index
== END 2024-04-23 11:41 | disposition home or self-care (01) ==
LOC: HO.HMGCLDS 11:40
PROVIDERS: Visit Provider Physician Assistant Medical
DX: L98.9 Disorder of the skin and subcutaneous tissue, unspecified (principal); L03.90 Cellulitis, unspecified
CPT/HCPCS: 36415; 85025; 86695; 86696

== ENCOUNTER 2024-08-08 10:09 | Outpatient (AMB) | payer OTHER, SELFPAY ==
--- NOTE | 2024-08-08 10:10 | A.OFFPC_ITS ---
Vital Signs 08/08/24 10:12 Height 5 ft 3 in Weight 128 lb BMI 22.7 BP 120/78 Blood Pressure Location Lt brachial Position Sitting Intake Visit Reasons: annual Intake Note: Patient here for an annual physical exam [employer] Required: No Accompanied by: Self / Same As Patient Allergies hydroxyzine Adverse Reaction (Intermediate, Verified 08/08/24 10:20) sweating Medication List - Last Reconciled 08/08/24 by Mandy Stovall MD No Known Home Meds Tobacco use date assessed: 08/08/24 Dental Screening Dental Screen Date: 08/08/24 Did you have a dental visit in the last 12 months?: Yes Did you have a dental problem in the last 6 months where you did not have access to dental care?: No Was dental information given to patient?: Patient has dentist HPI HPI Comments History of Present Illness Details This is a 44-year-old female that comes for her physical exam. Mammogram done over a year ago was normal and I will order another mammogram. She had a colonoscopy about 10 years ago and was normal as per patient. She prefers to do Cologuard. Last Tdap vaccine was 2013. Last Pap smear was about 2 years ago and was normal as per patient and she will call OBGYN for follow-up. Complains of blurry vision and would like to see Ophthalmology. Due to insurance changing she has not seen Ophthalmology in about 4 years. She has asthma-COPD overlap syndrome and was advised to quit. Saw pulmonology awhile ago and she will let me know if she wants to see them again because she is very busy at work. [facility], [facility] Medical History (Updated 08/08/24 @ 10:49 by Mandy Stovall MD) Asthma-COPD overlap syndrome Anxiety Insomnia CALLIE (generalized anxiety disorder) Mild recurrent major depression Pain in right axilla Leukopenia Palpitations Celiac disease Blurry vision Vitamin B 12 deficiency Recurrent sinus infections Surgical History H/O breast augmentation Family History Father Diabetes Hypertension CVD (cardiovascular disease) Myocardial infarction Mother Hypertension CVD (cardiovascular disease) Depression Mental health disorder Myocardial infarction Brother In good health Brother In good health Brother Bipolar 1 disorder Sister In good health Substance use disorder Sister In good health Sister In good health Son In good health Daughter In good health Social History (Updated 08/08/24 @ 10:47 by Mandy Stovall MD) Housing: House Alcohol intake: current Alcohol intake frequency: a few times a month Alcohol type: wine and hard liquor Patient Tobacco Use Status: Current everyday Tobacco user Tobacco use type: Cigarette Cigarettes Per Day: 2 e-Cigarette/Vaping Use: Never Used Second Hand Smoke Exposure: No service: No Current occupational status: employed Current occupational exposures/hazards: No Cognitive needs: No Hearing needs: No Vision needs: Yes (glasses) Questionnaire PHQ-9 Over the last 2 weeks, how often have you been bothered by any of the following problems? 1. Little interest or pleasure in doing things: not at all 2. Feeling down, depressed, or hopeless: not at all 3. Trouble falling or staying asleep, or sleeping too much: not at all 4. Feeling tired or having little energy: not at all 5. Poor appetite or overeating: not at all 6. Feeling bad about yourself - or that you are a failure or have let yourself or your family down: not at all 7. Trouble concentrating on things, such as reading the newspaper or watching television: not at all 8. Moving or speaking so slowly that other people could have noticed. Or the opposite - being so fidgety or restless that you have been moving around a lot more than usual: not at all 9. Thoughts that you would be better off or of hurting yourself in some way: not at all Total score: 0 Depression Screening Interpretation: Negative Depression Screening Done: Yes 95349 - PHQ-9 Billing: Yes Source: Developed by Drs. Jeremiah Layne, Maine Khan, Henry Patel and colleagues, with an educational abdoulaye from [employer]. Thrive Questionnaire Date Thrive assessed: 08/08/24 I am a: Patient What is your living situation today?: I have a steady place to live Within the past 12 months, did the food you bought not last and you didn't have the money to get more?: Never true Within the past 12 months, did you worry whether your food would run out before you got money to buy more?: Never true Do you have trouble paying for medicines?: No Do you have trouble getting transportation to medical appointments?: No Do you have trouble paying your heating and electricity bill?: No Do you have trouble taking care of your child, family member or friend?: No Do you have trouble with day-to-day activities such as bathing, preparing meals, shopping, managing finances, etc.?: No Are you currently unemployed and looking for a job?: No Are you interested in more education?: No Please select the resources that you would like help with: None Currently or been in a relationship where the following occur: No concerns reported THRIVE Score: 0 CALLIE-7 AMB Questionnaire CALLIE-7 Date CALLIE - 7 assessed: 08/08/24 Feeling nervous, anxious, or on edge: 0 = Not at all Not being able to stop or control worryin = Not at all Worrying too much about different things: 0 = Not at all Trouble relaxin = Not at all Being so restless that it is hard to sit still: 0 = Not at all Becoming easily annoyed or irritable: 0 = Not at all Feeling afraid as if something awful might happen: 0 = Not at all Total CALLIE-7 score (0-4 normal; 5-9 mild; 10-14 moderate; 15-21 severe): 0 Source: Developed by Drs. Jeremiah Layen, Maine Khan, Henry Patel and colleagues, with an educational abdoulaye from [employer]. CALLIE-7 Assessment Billing CALLIE-7 Assessment Tool: CALLIE-7 Assessment 62101 Review of Systems Const All systems reviewed & are unremarkable except as noted in HPI and below Card Denies chest pain at rest, Denies chest pain with activity, Denies edema, Denies irregular heart rhythm, Denies claudication, Denies dyspnea, Denies dyspnea on exertion, Denies orthopnea, Denies paroxysmal nocturnal dyspnea and Denies slow heart rate Resp Denies cough, Denies dyspnea and Denies dyspnea on exertion GI Denies abdominal pain, Denies change in bowel habits, Denies excessive flatus, Denies nausea and Denies vomiting Physical exam (Primary Care) Vital Signs: Last Vital Signs BP 120/78 08/08/24 10:12 BMI result Body Mass Index 22.7 Tobacco/Smoking Status: Tobacco use Status Tobacco use date assessed 08/08/24 08/08/24 10:17 Patient Tobacco Use Status Current everyday Tobacco 08/08/24 10:47 Tobacco use type Cigarette 08/08/24 10:47 e-Cigarette/Vaping Use Never Used 08/08/24 10:47 Are you ready to quit: Yes Tobacco cessation counseling provided: Yes Items discussed: Nicotine replacement and QuitWorks Relapse Prevention: discussed the importance of a supportive environment, discussed negative mood or depression after quitting and weight gain after smoking is common Number of minutes spent counselin CPT code: Less than 3 minutes PHQ-9: PHQ-9 Score PHQ-9: Total score 0 08/08/24 10:53 Depression Screening Interpretation: Negative Thrive Assessment: Date of Thrive Assessment Date Thrive assessed 08/08/24 08/08/24 10:17 Currently or been in a relationship where the following occur: No concerns reported HENMT Head: Yes normal to inspection, Yes normocephalic and Yes atraumatic Ears: external ears normal Eyes General: appearance normal, both eyes and all related structures Eyelids: Yes eyelids normal Conjunctivae: conjunctivae normal Neck Neck: Yes normal visual inspection and Yes supple Resp Effort & Inspection: normal respiratory effort Auscultation: clear to auscultation bilaterally Cardio Jugular venous distension: no JVD Rate: regular rate Rhythm: regular rhythm Heart sounds: S1 normal heart sound present and S2 normal heart sound present GI Inspection: Yes normal to inspection Palpation (GI): Soft to palpation and nontender Auscultation: normal bowel sounds Skin General skin exam: no rashes or lesions noted Neuro General: no focal motor deficits Extrem General: Yes full ROM Psych Appearance: grossly normal Office Procedures Flu Questionnaire Does the patient have a severe egg allergy?: No Immunizations Fluarix Triv [id number] (PF) 45 mcg (15 mcg x 3)/0.5 mL IM syringe Performing Provider: Mandy Stovall MD Performing Location: [facility] Documented (not given) by: MERLYN Kumar on 08/08/24 10:18 Reason Not Given: Patient Refused Boostrix Tdap 2.5 Lf unit-8 mcg-5 Lf/0.5 mL intramuscular syringe Performing Provider: Mandy Stovall MD Performing Location: [facility] Administered by: MERLYN Kumar on 08/08/24 10:53 Dose Route Admin Location Dispensed Lot Number Expiration Date NDC Seat Cover Cutter 0.5 mL IM Left Deltoid 0.5 mL [id number] 10/05/26 80156-415-89 Vindi VIS Given Date VIS Provided VIS Publication Date 08/08/24 Single Vaccine 21 Eligibility Eligibility Date Funding Source Not [facility] Eligible 08/08/24 Private Coding Level of Care Code Est Pt Level 3 (53981) Est Pt Prev Care 40-64y(25765) Diagnoses Physical exam Z00.00 Blurry vision H53.8 Asthma-COPD overlap syndrome J44.9 Additional Codes CALLIE-7 Assessment Billing - CALLIE-7 Assessment Tool: CALLIE-7 Assessment 41078 ([id number]) PHQ-9 - 89810 - PHQ-9 Billing: Yes ([id number]) Time Spent (min) 31 Assessment & Plan Assessment & Plan (1) Physical exam: Code(s): Z00.00 - Encounter for general adult medical examination without abnormal findings Category: Medical Plan: Repeat in a year. (2) Blurry vision: Code(s): H53.8 - Other visual disturbances Category: Medical Plan: Referred to Ophthalmology. (3) Asthma-COPD overlap syndrome: Code(s): J44.9 - Chronic obstructive pulmonary disease, unspecified Category: Medical Plan: Use rescue inhaler as needed. Orders: Orders Influenza [id number] Immunization Today Z23 - Encounter for immunization MM tomosynthesis screening BI Today Z12.31 - Encounter for screening mammogram for malignant neoplasm of breast TDaP Immunization Today Z23 - Encounter for immunization Referrals Cologuard Test Z12.11 - Encounter for screening for malignant neoplasm of colon, Z12.12 - Encounter for screening for malignant neoplasm of rectum Ophthalmology Referral H53.8 - Other visual disturbances
[2024-08-08 10:12] VITALS: BP 120/78; BMI 22.7
== END 2024-08-08 10:52 | disposition home or self-care (01) ==
PROVIDERS: PCP Internal Medicine; Visit Provider Internal Medicine
DX: Z00.00 Encounter for general adult medical examination without abnormal findings (principal); H53.8 Other visual disturbances; J44.9 Chronic obstructive pulmonary disease, unspecified; Z23 Encounter for immunization

== ENCOUNTER → 2024-08-08 10:09 | Outpatient (BNVA) | payer OTHER, SELFPAY | PROVIDERS: PCP Internal Medicine; Visit Provider Internal Medicine | DX: Z00.00 Encounter for general adult medical examination without abnormal findings (principal); Z23 Encounter for immunization; H53.8 Other visual disturbances; J44.9 Chronic obstructive pulmonary disease, unspecified | CPT/HCPCS: 90471; 90715; 96127; 99396 ==

== ENCOUNTER 2024-10-10 11:03 | Outpatient (REF) | payer OTHER, SELFPAY ==
--- OUTSIDE RECORDS SUMMARY | 2024-10-10 16:01 | XMS_ITS | Data Portability ---
Author Organization [facility] Javier s, [address] Address [address] [place] [address] Care Team Providers Care Mailroom Coordinator Name Role Phone [facility] Primary Care Provider Assessment No assessment recorded. Plan of Treatment Reminders Order Date Submit Date Provider Last Modified By Organization Details Last Modified Time Details Appointments None recorded. Lab urinalysis, dipstick 2022 023 [email or web address] [facility], [address] [place] [address], [id number], 19:26:55 test, urine [id number] [place] [address], [address] [place] [address], [address], 19:26:55 Referral emergency medicine referral - diffuse abdominal pain and History of constipatio n x 3 weeks . Need to rule out fecal impaction. patient also complaining of lymph node enlargement left posterior cervical . Need further evaluation and treatment. 2022 023 [email or web address] 26 [facility] Emergency Department, [address] [place], [address], 08:28:32 Procedures None recorded. Surgeries None recorded. Imaging None recorded. Medication Orders None recorded. Patient TargetsNo targets recorded. Patient Instructions Encounter Date Encounter Id Patient Instructions Last Modified By Organization Details Last Modified Time 12/08/2022 [id number] nausea and vomiting: care instructions true Not available 12/08/2022 19:26:55 Try small amount s of clear liquids frequently. If vomiting occurs, wait 30-60 minutes before trying clear liquids again. Once you are able to tolerate clear liquids for at least 6 hours without vomiting, you can advance to a soft diet consisting of foods such as bananas, rice, applesauce, toast, crackers, and other foods rich in carbohydrates and low on fats and spices. If the diet is tolerated for 12-24 hours, you can slowly add other foods to your diet. If vomiting occurs, you should go back to clear liquids only and work your way back to a normal diet as outlined above. If much worse, you should seek treatment immediately. Not available 12/08/2022 18:59:52 Reason for Referral Emergency Medicine Referral for Abdominal pain diffuse abdominal pain and History of constipation x 3 weeks . Need to rule out fecal impaction. pat diffuse abdominal pain and History of constipation x 3 weeks . Need to rule out fecal impaction. patient also complaining of lymph node enlargement left posterior cervical . Need further evaluation and treatment. Referring Physician: Rajinder Berry, Urgent Care, Encounter Date: 12/08/2022 Results Created Date Observation Date Name Description Value Unit Range Abnormal Flag Note LastModifiedBy Organization Detail LastModifiedTime 12/09/1912/08/2022 pregn adama test, urine Unknown Analyte Normal = Negati ve Not Available [address], [address], 12/08/2022 19:07:57 12/09/1912/08/2022 pregn adama test, urine Unknown Analyte negati ve Not Available [address], [address], 12/08/2022 19:07:57 12/09/19 23 12/08/2022 urina lysis , dipst ick Unknown Analyte Normal = light yellow Not Available [address], [address], 12/08/2022 19:07:12 12/09/1912/08/2022 urina lysis , dipst ick Unknown Analyte Yellow Not Available [facility] [address] [place] [address], [place], [address], 12/08/2022 19:07:12 12/09/19 23 12/08/2022 urina lysis , dipst ick Unknown Analyte Normal = clear Not Available [facility], [place], [address], 12/08/2022 19:07:12 12/09/19 23 12/08/2022 urina lysis , dipst ick Unknown Analyte Clear Not Available xu [address], [place], [address], 12/08/2022 19:07:12 12/09/19 23 12/08/2022 urina lysis , dipst ick Unknown Analyte Normal = negati ve Not Available [facility], [place], [address], 12/08/2022 19:07:12 12/09/1912/08/2022 urina lysis , dipst ick Unknown Analyte Negati ve Not Available sole [facility], [place], [address], 12/08/2022 19:07:12 12/09/1912/08/2022 urina lysis , dipst ick Unknown Analyte Normal = Negati ve Not Available [facility] [address] [place] [address], [place], [address], 12/08/2022 19:07:12 12/09/19 23 12/08/2022 urina lysis , dipst ick Unknown Analyte Negati ve Not Available sole [facility] [address] [place] [address], [place], [address], 12/08/2022 19:07:12 12/09/19 23 12/08/2022 urina lysis , dipst ick Unknown Analyte Normal = Negati ve Not Available [address]sole hernandez [address], [place], [address], 12/08/2022 19:07:12 12/09/19 23 12/08/2022 urina lysis , dipst ick Unknown Analyte Trace Not Available [address] [place], [place] [address]eldon [address], [place], [address], 12/08/2022 19:07:12 12/09/19 23 12/08/2022 urina lysis , dipst ick Unknown Analyte Normal = 1.010, 1.015, 1.020 Not Available [address], [place], [address], 12/08/2022 19:07:12 12/09/19 23 12/08/2022 urina lysis , dipst ick Unknown Analyte 1.015 Not Available [address] [place] [address], [place], [address], 12/08/2022 19:07:12 12/09/19 23 12/08/2022 urina lysis , dipst ick Unknown Analyte Normal = Negati ve Not Available [address]99sole hernandez [address], [place], [address], 12/08/2022 19:07:12 12/09/19 23 12/08/2022 urina lysis , dipst ick Unknown Analyte Negati ve Not Available [address], [place], [address], 12/08/2022 19:07:12 12/09/19 23 12/08/2022 urina lysis , dipst ick Unknown Analyte Normal = 6.5, 7.0, 7.5, 8.0 Not Available [address], [place], [address], 12/08/2022 19:07:12 12/09/19 23 12/08/2022 urina lysis , dipst ick Unknown Analyte 7.0 Not Available [facility] [address], [place], [address], 12/08/2022 19:07:12 12/09/19 23 12/08/2022 urina lysis , dipst ick Unknown Analyte Normal = Negati ve Not Available [facility] [address], [place], [address], 12/08/2022 19:07:12 12/09/19 23 12/08/2022 urina lysis , dipst ick Unknown Analyte Negati ve Not Available [facility] [address], [place], [address], 12/08/2022 19:07:12 12/09/19 23 12/08/2022 urina lysis , dipst ick Unknown Analyte Normal = 0.2, 1.0 Not Available sole hernandez [address], [place], [address], 12/08/2022 19:07:12 12/09/19 23 12/08/2022 urina lysis , dipst ick Unknown Analyte 0.2 E.U./d L Not Available [facility] [address], [place], [address], 12/08/2022 19:07:12 12/09/1912/08/2022 urina lysis , dipst ick Unknown Analyte Normal = Negati ve Not Available [facility] [address], [place], [address], 12/08/2022 19:07:12 12/09/19 23 12/08/2022 urina lysis , dipst ick Unknown Analyte Negati ve Not Available [address] hernandez [address] [place], [address], 12/08/2022 19:07:12 12/09/19 23 12/08/2022 urina lysis , dipst ick Unknown Analyte Normal = Negati ve Not Available [address] [place], [address], 12/08/2022 19:07:12 12/09/1912/08/2022 urina lysis , dipst ick Unknown Analyte Negati ve Not Available [address] hernandez [address] [place], [address], 12/08/2022 19:07:12 Result Notes None recorded. Problems No Known Problems Medical Equipment None Reported. Allergies No known drug allergies Medications Not known to be on any medication Vitals Date Recorded Body height Provider Name an d Address Organization Details Last Updated DateTime 12/08/2022 160.02 cm JAMES DEPINTO PA - [facility] 0 12/08/2022 19:01:06 Date Recorded Body mass index (BMI) Body weight Provider Name and Address Organization Details Last Updated DateTime 12/08/2022 23.9 kg/m2 78199.97 g JAMES DEPINTO PA - [facility] 12/08/2022 19:01:09 Date Recorded Pain severity - 0-10 verbal numeric rating [Score] - Reported Provider Name and Address Organization Details Last Updated DateTime 12/08/2022 6 JAMES DEPINTO PA - [facility] 0 12/08/2022 19:01:19 Date Recorded Respiratory rate Provider Name a nd Address Organization Details Last Updated DateTime 12/08/2022 18 /min JAMES DEPINTO PA - [facility] 0 12/08/2022 19:01:22 Date Recorded Body temperature Provider Name a nd Address Organization Details Last Updated DateTime 12/08/2022 97.3 [degF] JAMES DEPINTO PA - [facility] 12/08/2022 19:03:58 Date Recorded Oxygen saturation Oxygen saturation in Arterial blood by Pulse oximetry Provider Name and Address Organization Details Last Updated DateTime 12/08/2022 99 % 99 % [facility] - [facility] 12/08/2022 19:04:15 Date Recorded Heart rate Provider Name an d Address Organization Details Last Updated DateTime 12/08/2022 66 /min [facility]o [facility] PA - [facility] 0 12/08/2022 19:04:17 Date Recorded Systolic blood pressure Diastolic blood pressure Provider Name and Address Organization Details Last Updated DateTime 12/08/2022 117 mm[Hg] 72 mm[Hg] JAMES KENA PA - [facility] 12/08/2022 19:04:24 Social History Question Answer Notes LastModified by Organizat ion Details LastModified Time Tobacco Smoking Status Current Some Day Smoker JAMES sherwood PA - [facility] 12/08/2022 19:03:17 What Is Your Level Of Alcohol Consumption? None Information not available 12/08/2022 How Much Tobacco Do You Smoke? 0.5 PPD 4-5 Cigarettes A Day Information not available 12/08/2022 Do You Use Any Illicit Or Recreational Drugs? No Information not available 12/08/2022 Have You Recently Traveled Abroad? No Information not available 12/08/2022 Do You Or Have You Ever Used Any Other Forms Of Tobacco Or Nicotine? No Information not available 12/08/2022 Sex: Unknown Functional Status None recorded. Mental Status None recorded. Family History Relationship Description Onset Age of this Age Resolved Age Notes LastModified by Organization Details LastModified Time Father No current problems or disability Not available 12/08 19:02:46 Mother No current problems or disability Not available 12/08 19:02:47 Medical History No medical history recorded. Gynecological HistoryNo gynecological history recorded. Obstetrics History GPAL:G 0 P 0 0 0 0 Immunizations Vaccine Type Date Status Note Provider Nam e and Address Organization Details Recorded Time Tdap 05/04/2014 completed JAMES sherwood PA - [facility] 12/08/2022 19:01:33 Past Encounters Encounter ID Performer Location Encounter Start Date Encounter Closed Date Diagnosis/Indication Diagnosis SNOMED-CT Code Diagnosis ICD10 Code Diagnosis Note [id number] [facility] [address] [facility] [place] [address] 11/16/2019 14:48:45 11/16/2019 15:19:41 [id number] [facility] [address] [facility] [place] [address] 11/05/2020 11:45:10 11/05/2020 12:15:18 [id number] [facility] [address] [place] [address] [place] [address] 09/08/2018 13:41:36 09/08/2018 14:58:47 [id number] [address] [address] [place] [address] [place] [address] 12/20/2021 10:48:42 12/20/2021 12:55:00 [id number] [address] [address] [place] [address] [place] [address] 11/09/2021 12:23:42 11/09/2021 13:42:04 [id number] [address] [facility] [facility] [place] [address] [place] [address] 01/20/2019 16:48:17 01/20/2019 17:12:24 [id number] [address] [address] [facility] [place] [address] 02/10/2019 10:06:46 02/10/2019 10:21:26 [id number] [address] [facility] [place] [address] 03/04/2018 08:15:01 03/04/2018 08:52:23 [id number] [address] [address] [facility] [place] [address] 09/30/2018 10:32:26 09/30/2018 11:28:21 [id number] [address] [place] [address] 07/04/2020 13:19:06 07/04/2020 15:06:29 [id number] [address] [facility] [place] [address] 10/10/2019 16:49:25 10/10/2019 17:55:31 [id number] [address] [facility] [facility] [place] [address] 01/20/2022 08:19:21 01/20/2022 09:27:47 [id number] [address] [facility] [facility] [place] [address] 09/23/2018 17:21:04 09/23/2018 17:48:42 [id number] Rajinder Berry NP [address] [address] [facility] [place] [address] 12/08/2022 17:27:14 12/08/2022 19:32:02 Abdominal pain 99056010 R10.9 Health Concerns Section Related Observation LastModified by Organization Detai ls LastModified Time None Recorded Concern Status LastModified by Organization Details LastModified Time None Recorded Advance Directives Directive None Recorded Payers Encounter Date Sequence Insurance Name Policy Number Policy Kee Covered Member ID Kee Member ID Guarantor Name 11/05/2020 1 [facility] [employer] [facility] (MEDICAID O) ABIMAEL Martinez [id number] Smitha Martinez 12/20/2021 1 [facility] [employer] [facility] (MEDICAID O) ABIMAEL Martinez [id number] Smitha Martinez 01/20/2022 1 [facility] [employer] [facility] (MEDICAID O) ABIMAEL Martinez [id number] Smitha Martinez 12/08/2022 1 [facility] [employer] PLAN (MEDICAID O) ABIMAEL Martinez [id number] Smitha Martinez Notes Date Note Type Note Provider Name and Address Organization Details Recorded Time 12/08/2022 text/html Nausea UCReporte d bypatient.source of patient informationPatient arrived at Urgent Care ambulatory Locationdiffuse Quality:worsening Severity:mild Durationpresent for 2-4 weeks Onset/Timing:gradual onset; still present Contextno drug/alcohol abuse; no one else with similar symptoms; no recent camping; no recent picnic; no possible food sources; no well water; no foreign travel Alleviating factors:nothing helps Aggravating factors:nothing makes it worse Associated Symptoms:no excess gas; no fever; no cholesterol issues; no diarrhea; no dry heaves; no heartburn; no fatigue; no weakness; no weight loss; no weight gain; no muscle aches; no muscle weakness; no nutrient deficiency; no change in bowel/bladder habits;abdominal pain Rajinder Berry NP [address] [place], [address], PA - [facility] 12/08/2022 19:33:51 OBGyn Episode No OBEpisode recorded.
--- OUTSIDE RECORDS SUMMARY | 2024-10-10 16:01 | XMS_ITS | Continuity of Care Document ---
Author Organization [facility] Address [address] [place] [address] Phone Care Team Providers Care Sap Solution Manager Consultant Name Role Phone Cyrus OWENS, RVT, RPVI, Jeremiah Unavailable U navailable Allergies, Adverse Reactions, Alerts Substance Reaction Status Criticality hydroxyzine Active No Information Medications Medication Instructions Dosage Effective Dates (start - stop) Status Comments lorazepam 0.5 mg tablet - Active Procedures Procedure Date Office/Outpt E&M Established 15 Mins- CT & [place] Duplex Scan-extrem Veins; Uni/ CT & [place] J Office/Outpt E&M Established 15 Mins Apr Duplex Scan-extrem Veins; Uni/ Endovenous Laser, 1st Vein Endovenous Laser, 1st Vein Endovenous laser vein addon Office/Outpt E&M Established 10 Mins January Advance Directives Directive Yes / No Effective Date File Name No Information Encounters Encounter Description Practice Location Reason(s) For Visit Diagnoses Date Provider Providers Copied on Encounter Office/Outpt E&M Established 15 Mins- [facility] & [place] [facility], [address] [place] [address] [address], [id number], [place] tel:[phone] [facility] Chronic venous hypertension (idiopathic) without complications of right lower extremityVeno us insufficiency (chronic) (peripheral)L ymphedema, not elsewhere classifiedHer editary lymphedema 5 Cyrus OWENS, RVT, BLANCO Daniels. [address] [facility], [address], [place], [place], [id number] , [place]. tel:[phone] Referring Provider: Mandy Ford MD, [address] [facility] , [address] [place] D/B/A: [place], [address]. tel:[phone] [facility], [address] [place] [address] [address], [id number], [place] tel:[phone] [facility] - [facility] Chronic venous hypertension (idiopathic) with other complications of right lower extremity 5 Cyrus OWENS, PAMELAT, BLANCO Daniels. [address] [facility], [address], [place], [place], [id number] , [place]. tel:[phone] Referring Provider: Mandy Ford MD, [address] [facility] , [address] [place] [address] D/B/A: [place], [address]. tel:[phone] Office/Outpt E&M Established 15 Mins [facility], [address] [place] [address] [address], [id number], [place] tel:[phone] [facility] - [facility] Chronic venous hypertension w oth comp of l low extrem 3 Zain OWENS FACS PAMELAT BLANCO Conteh. [address] [facility], Suite [facility], [place], [address], [place]. tel:[phone] Referring Provider: Mandy Ford MD, [address] [facility] , [address] [place] D/B/A: [place], [address]. tel:[phone] [facility], [address] [place] [address] [address], [id number], [place] tel:[phone] [facility] - [facility] Encntr for f/u exam aft trtmt for cond oth than malig neoplmPain in left leg 3 Zain OWENS FACS T BLANCO Conteh. [address] [facility], [address], [place], [address], [place]. tel:[phone] Referring Provider: Mandy Ford MD, [address] [facility] [address], [address] [place] [address] D/B/A: [place], [address]. tel:[phone] [facility], [address] [place] [address] [address], [id number], [place] tel:[phone] [facility] [place] [facility] [place] Pain in left leg 3 Zain OWENS FACS T BLANCO Conteh. [address] [facility], [address], [place], [address], [place]. [phone] Referring Provider: Mandy Ford MD, [address] [facility] [address], [address] [place] [address] D/B/A: [place], [address]. tel:[phone] [facility], [address] [place] [address] [address], [id number], [place] tel:[phone] [facility] - [place] [facility] [place] Chronic venous hypertension w inflammation of l low extrem 3 Zain OWENS FACS Pat Conteh. [address] [facility], [address], [place], [address], [place]. [phone] Referring Provider: Mandy Ford MD, [address] [facility] [address], [address] [place] [address] D/B/A: [place], [address]. tel:[phone] Office/Outpt E&M Established 10 Mins [facility], [address] [place] [address] [address], [id number], [place] tel:[phone] [facility] [place] [facility] [place] Venous insufficiency (chronic) (peripheral) 3 Zain WOENS FACS T BLANCO Conteh. [address] [facility], [address], [place], [address], [place]. tel:[phone] Referring Provider: Mandy Ford MD, [address] [place] [address] , [address] [place] D/B/A: zain Mejia In [facility], [place], [address]. tel:[phone] Family History Family Member Type Diagnosis Age At Onset No Information Payers Payer name Insurance type Covered democrat ID Evgeny gupta(s) [facility] [id number] Social History Type Description Quantity Date Captured Comments Alcohol Use Details Unknown Caffeine Use Details Unknown Tobacco Use Status No Information Smoking Status Former Smoker Non-Smoking Tobacco Use Details : No Details Available : No Details Available Sex Female Vital Signs Date / Time: Height Weight BMI Pulse Rate Blood Pressure Temperature Respiratory Rate Body Surface Area Head Circumference Head Circ. Percentile Wt./Ángel. Percentile BMI percentile Pulse Ox Inhaled Ox 58.060 kg (128.00 lbs) 23.4 4 kg/m eter (2) 112/72 mm[Hg] Chief Complaint And Reason For Visit No Information Reason For Referral Reason For Referral No Information Plan Of Treatment Date Type Action Status Goal Diet education completed Goal Tobacco cessation counseling completed Goal Tobacco cessation counseling completed Goal Tobacco cessation counseling completed Referral Ordered: Weight management: Referral to physician timeframe: 3 Months (related to Body mass index (BMI) 23.0-23.9, adult) ordered Appointment Smitha Martinez BOOKED Appointment Smitha Martinez BOOKED Appointment Smitha Martinez BOOKED Appointment Smitha Martinez BOOKED Appointment Smitha Martinez BOOKED Appointment Smitha Martinez BOOKED History Of Present Illness Encounter Date Complaint History Of Prese nt Illness No Information Functional Status Date Functional Assessmen t No Information Instructions Date Instruction Additional Infor mation Diet education Related to Body mass index (BMI) 23.0-23.9, adult Patient education booklet given Related to Chronic venous hypertension (idiopathic) without complications of right lower extremity Pre and post instruc tions reviewed and provided Related to Chronic venous hypertension (idiopathic) without complications of right lower extremity Giving Encouragement to exercise Related to Body mass index (BMI) 23.0-23.9, adult Lifestyle education Related to B max mass index (BMI) 23.0-23.9, adult Patient education booklet given Related to Chrn Vns Hyprtnsn w/Compl (Pain Edema Swelling); LEFT Assessments Type Assessment Date No Information Patient Care Teams Name Effective Dates (start - stop) Status Members No Information
--- OUTSIDE RECORDS SUMMARY | 2024-10-10 16:01 | XMS_ITS | Data Portability ---
Author Organization [facility], , [facility] Address [address] [place] [address] Assessment No assessment recorded. Plan of Treatment Reminders Order Date Submit Date Provider Last Modified By Organization Details Last Modified Time Details Appointments None record ed. Lab None record ed. Referral None record ed. Procedures None record ed. Surgeries None record ed. Imaging None record ed. Medication Orders None record ed. Patient TargetsNo targets recorded. Patient InstructionsNo instructions recorded. Reason for Referral None Reported. Results Created Date Observation Date Name Description Value Unit Range Abnormal Flag Note LastModifiedBy Organization Detail LastModifiedTime Result Notes None recorded. Procedures Surgical History Date Name Laterality Status Provider Name and Address Organization Details Recorded Time 6 Anay - Colonoscopy completed Yuan Cueva MD [address] [place] [address], [id number], [facility] [place] 07/14/2016 08:36:56 Imaging Results None recorded. Procedure Notes None recorded. Medical Equipment None Reported. Medications Name Sig Start Date Stop Date Status Note LastModified by Organization Details LastModified Time azithromycin 250 mg tablet active Not Available Not Available No t Available ibuprofen 800 mg tablet active Not Available Not Available Not Available prochlorperazine maleate 10 mg tablet active Not Available Not Available Not Available Gentle Laxative (bisacodyl) 5 mg tablet,delayed release active Not Available Not Available Not Available magnesium citrate oral solution active Not Available Not Availabl e Not Available peg 3350-electrolytes 236 gram-22.74 gram-6.74 gram-5.86 gram solution active Not Available Not Available Not Available Linzess 145 mcg capsule active Not Available Not Available Not Available Vitals None Recorded Social History None recorded. Functional Status None recorded. Mental Status None recorded. Family History Nothing Reported. Medical History No medical history recorded. Gynecological HistoryNo gynecological history recorded. Obstetrics History GPAL:G 0 P 0 0 0 0 Past Encounters Encounter ID Performer Location Encounter Start Date Encounter Closed Date Diagnosis/Indication Diagnosis SNOMED-CT Code Diagnosis ICD10 Code Diagnosis Note [id number] Yuan Cueva MD [facility], [address] [address] 07/14/2016 07:00:32 07/14/2016 12:09:19 Health Concerns Section Related Observation LastModified by Organization Detai ls LastModified Time None Recorded Concern Status LastModified by Organization Details LastModified Time None Recorded Advance Directives Directive None Recorded Payers Encounter Date Sequence Insurance Name Policy Number Policy Kee Covered Member ID Kee Member ID Guarantor Name 07/14/2016 1 [facility] PLAN (MEDICAID HMO) [id number] Smitha Martinez [id number] Smitha Martinez OBGyn Episode No OBEpisode recorded.
--- OUTSIDE RECORDS SUMMARY | 2024-10-10 16:01 | XMS_ITS ---
Author Organization [facility] Address [address] [place] [address] Care Team Providers Care Terminal Supervisor Name Role Phone JAMES YEH Unavailable [phone] REASON FOR VISIT Annual SHAREPOINT ADMINISTRATOR Physical Encounters Encounter Location Date Provider Diagnosis [facility] [address] [address] 03/11/2024 JAMES YEH Encounter for gynecological examination [...] Follow Up: 1 Year, Reason: Y early Operator Specialist Communications Exam Progress Notes * SMITHA HERMANDOB:[birth year] (44 yo F)Acc No.[id number]:03/11/2024 PROGRESS NOTES Patient:?SMITHA HERMAN Provider:?JAMES YEH MD :1980???Age:43 Y???Sex:Female D ate:03/11/2024 Address:[address] [place] [address] Subjective: * Chief Complaints: * ???1. Annual SHAREPOINT ADMINISTRATOR Physical. 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 ?She has been in state of good health since her last exam. She has the following concerns: ?She has a history of herpes, and requests refill of Valtrex. ?She has received the Modera Covid-19 vaccine. ?Relationship status: *single . She is *not currently sexually active. Sexual partner(s): male. She does* wish to have STI testing. ?Menses: *monthly, lasting about a week, very heavy flow. She wears a Poise pad on her heaviest days x 3-4 days. She will change her pad every time she voids, and notes that it appears more than 50% stained.? A CBC last year showed no anemia. ?Contraception: *abstinence ?She does *not report vaginal dryness. She does *think she has had a few hot flashes/night sweats. ?The patient has *not had an abnormal pap smear within the last 5 years. Her most recent pap smear was 03/21/19 - NIL, neg HR HPV. Due for cotesting in 2023. ?She has not been diagnosed with breast cancer. She does *not have a family history of breast cancer. Her last mammogram was 2-3 yrs ago - at [place]. She does have a family history of colon cancer. She has had a colonoscopy. The most recent colonoscopy was . ?The patient does *not exercise. * ROS:?Annual Operator Specialist Communications Exam ROS:?Bowel habit changes?denies.?Bladder symptoms?denies.?Vaginal discharge, unusual?denies.?Vaginal itch or odor?denies.?weight or appetite changes?denies.?Chest pains, SOB?denies.?depression?denies.?Breast:?Denies?Breast lump.?Denies?Nipple discharge.?Hematology:?Denies?Swollen glands.?Skin:?Patient denies?changing moles.?Psychiatric:?Denies?Anxiety.? * Medical History:? * Family History:?Mother: ashley e 79 yrs, Arthritis, [place] x 2.?Father: alive 79 yrs, Diabetes, [place].?Sister Concepción: alive 59 yrs.?3 brother(s) , 3 sister(s) . .? Denies family history of breast, colon, uterine or ovarian cancers. Objective: * Vitals:? * Examination: ???General Examination: ?GENERAL APPEARANCE:?in no acute distress, well developed, well nourished, carcass trimmer present in room.?HEAD:?normocephalic, atraumatic.?NECK/THYROID:?neck supple, full range of motion, thyroid normal.?LYMPH NODES:?no axillary or supraclavicular adenopathy.?SKIN:? normal, good turgor, no rashes, no suspicious lesions.?BREASTS:? normal, no dimpling, no discharge, no drainage, no masses palpable bilaterally, nontender.?ABDOMEN:? soft, non-tender, non distended without masses or hepatosplenomegay.?RECTAL:? normal tone, no masses palpable.?BACK:? no costovertebral angle tenderness.?FEMALE GENITOURINARY:?Vulva without lesions or masses, vagina pink without abnormal discharge, lesions or masses, cervix appears normal and is not tender to palpation, uterus is normal size, mobile, nontender and anteverted, ovaries are not palpable.?NEUROLOGIC:? alert and oriented, gait normal.?PSYCH:? alert, oriented, cognitive function intact, cooperative with exam, good eye contact, mood/affect full range, speech clear.? Assessment: * Assessment: 1.?Encounter for gynecologic al examination (general) (routine) without abnormal findings - Z01.419 (Primary)???2.?Encounter for screening mammogram for malignant neoplasm of breast - Z12.31???3.?Encounter for screening for infections with a predominantly sexual mode of transmission - Z11.3??? Plan: * Treatment: 2.?Encounter for screening m ammogram for malignant neoplasm of breast?Imaging: MM Digital Screening Mammogram 3D * Follow Up:?1 Year (Reason: Y early Operator Specialist Communications Exam) * Images: Billing Information: * Visit Code:? 78364 Preventive Care Est Pt. Age 40-64. * Procedure Codes:? 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 She has been in state of [...] mammogram was 2-3 yrs ago - at [place]. She does have a family history of colon cancer. She has had a colonoscopy. The most recent colonoscopy was . The patient does *not exercise. Examination Category Sub-Category Detail Notes Category Not es General Examination GENERAL APPEARANCE: in no ac alecia distress, well developed, well nourished, carcass trimmer present in room HEAD: normocephalic, atrau matic [...]
--- OUTSIDE RECORDS SUMMARY | 2024-10-10 16:01 | XMS_ITS | Patient Health Record ---
Author Organization [facility] Address [address] [place] [address] Care Team Providers Care Reduction Plant Supervisor Name Role Phone JAMES YEH Unavailable [phone] Allergies No Known Allergies Reason For Referral No Information Medications Medication SIG (Take, Route, Frequency, Duration) Notes Start Date End Date Status Hydrocortisone Acetate 25 MG 1 suppository Rectal Three times a day for 10 days 03/21/2019 Not-Taking Hydrocortisone Acetate 2.5 % 1 application to affected area Externally Twice a day for 10 days 03/21/2019 Not-Taking valACYclovir HCl 500 MG 1 tablet Orally twice daily for 3 days Active Social History Tobacco Use: Social History Observation Description Date Details (start date - stop date) Current Smoker NA - NA Tobacco Use/Smoking Question Answer Notes Are you a current smoker How often do you smoke cigarettes? every day How many cigarettes a day do you smoke? 5 or les s Alcohol Screen (Audit-C) Question Answer Notes Did you have a drink contain ing alcohol in the past year? Yes How often did you have a dri nk containing alcohol in the past year? 2 to 3 times a week (3 points) How many drinks did you have on a typical day when you were drinking in the past year? 3 or 4 drinks (1 point) How often did you have 6 or more drinks on one occasion in the past year? Never (0 point) Points 4 Interpretation Positive Sexual History Question Answer Notes Had sex in the past 12 months (vaginal, oral, or anal)? 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) Active confirmed Problem Irritable bowel syndrome characterized by constipation (619151665) Irritable bowel syndrome with constipation (K58.1) Active confirmed Problem COVID-19 (926421580) COVID-19 (U07.1) Active confirmed Plan Of Treatment Pending Test Test Name Order Date THIN PREP,HPV,MARIZA IF HPV+/CYT-,CT/GC(>2 9YR)(DIAG) 03/21/2019 MM Digital Screening Mammogram 3D 2022 MM Digital Screening Mammogram 3D 2018 Medical (General) History Medical History History ICD Code Herpesviral vulvovaginitis A60.04 Rheumatoid arthritis with rheumatoid fac tor, unspecified M05.9 COVID-19 U07.1 Irritable bowel syndrome with constipati on K58.1 Surgical History Surgery Date(Month/Year) Breast Augmentation 2013 Colonoscopy - ?8704-4444? Hospitalization History Reason Date(Month/Year) 2 Vaginal Deliveries See Surgical Hx
== END 2024-10-10 11:04 | disposition home or self-care (01) ==
LOC: HO.MAMMO 11:03
PROVIDERS: PCP Internal Medicine; Visit Provider Internal Medicine
DX: Z12.31 Encounter for screening mammogram for malignant neoplasm of breast (principal)
CPT/HCPCS: 77063; 77067

== ENCOUNTER → 2024-10-10 11:45 | Outpatient (BNV) | payer OTHER, SELFPAY | PROVIDERS: PCP Internal Medicine; Visit Provider Internal Medicine | DX: Z12.31 Encounter for screening mammogram for malignant neoplasm of breast (principal) | CPT/HCPCS: 77063; 77067 ==

== ENCOUNTER 2025-04-13 06:32 | Observation (INO) | payer OTHER, SELFPAY ==
[2025-04-13] VITALS (8 sets, daily range): BP systolic 88–107; BP diastolic 50–62; PULSE 61–95; RESP 16–20; TEMP 36.4–37.2; O2SAT 96–100; BMI 23.9
--- NOTE | ~2025-04-13 | CT_ITS ---
EXAMINATION: CT HAND WITH CONTRAST, RIGHT CLINICAL INFORMATION: Swelling, evaluate for abscess COMPARISON: None available. TECHNIQUE: Axial CT was performed between the distal forearm and through the fingers with IV contrast. Coronal and sagittal reformatted images were generated from the original axial data set. IV contrast: 85 mL Omnipaque 350 ALARA: The examination used one or more of the following radiation dose reduction techniques: Automated exposure control, iterative reconstruction, and/or adjustment of mA and/or KV. DLP: 106 mGY*cm FINDINGS: Soft tissues: There is increased density of the adipose tissues, particularly in the dorsum of the hand. There is no loculated fluid collection with peripheral enhancement. Flexor and extensor tendons appear grossly intact. Bones: Degenerative cystic changes present in the base of the hamate, orbits and capitate, and third metacarpal head No erosions or osteophytes are seen. There is borderline widening of scapholunate interval. CT/CT hand RT w IV con IMPRESSION: There is generalized edema and/or cellulitis most pronounced in the dorsum of the hand. There is no loculated fluid peripheral enhancement to suggest abscess. There are nonspecific degenerative cystic changes involving hamate, capitate, and third metacarpal head. Borderline widening of scapholunate interval could indicate an underlying partial tear of scapholunate ligament. Electronically signed by: Jose Juan Raza MD 04/13/2025 09:47 AM EDT
[2025-04-13 07:19] LABS: MANUAL DIFF FLAG NO
--- OUTSIDE RECORDS SUMMARY | 2025-04-13 07:19 | XMS_ITS | Clinical Summary ---
Author Organization [facility] Address [address] [place] [phone] Phone Care Team Providers Care Bellman Driver Name Role Phone Jose Cleary MD Primary Care Provide r Allergies No known active allergies Medications guaiFENesin-cod eine (ROBITUSSIN AC) 100-10 mg/5 mL liquid Take 5 mL (10 mg of codeine total) by mouth 3 (three) times a day as needed for cough. 120 mL 03/03/2018 Active Social History Tobacco Use Types Packs/Day Years Used Date Smoking Tobacco: Never Assessed Education Answer Date Recorded Are you interested in more education? Not on jorge luis e 01/09/2023 Are you concerned about learning? Not on file 01/09/2023 No 01/09/2023 No 01/09/2023 Digital Access Answer Date Recorded No 02/06/2023 No 02/06/2023 Reliable internet access at home? Not on file 02/06/2023 Device with a working camera? Not on file Comments Unknown Sex and Gender Information Value Date Recorded Sex Assigned at Not on file Legal Sex Female 9:25 PM EDT Gender Identity Not on file Sexual Orientation Not on file Last Filed Vital Signs Vital Sign Reading Time Taken Comments Blood Pressure 118/72 04/20/2017 3:39 AM EDT Pulse 90 03/03/2018 2:36 PM EDT Temperature 36.9 C (98.4 F) 03/03/2018 2:32 PM EDT Respiratory Rate 18 03/03/2018 2:28 PM EDT Oxygen Saturation 100% 03/03/2018 2:36 PM EDT Inhaled Oxygen Concentration - - Weight 54.4 kg (120 lb) 03/03/2018 2:28 PM EDT Height 157.5 cm (5' 2 ) 03/03/2018 2:28 PM EDT Body Mass Index 21.95 03/03/2018 2:28 PM EDT Plan of Treatment Health Maintenance Due Date Last Done Comments LIPID PANEL 1978 DEPRESSION SCREENING 1990 SMOKING Hx and SMOKELESS TOBACCO SCREENING 1991 HEPATITIS C SCREENING 1996 HIV ONE-TIME SCREENING (18-6 5 YEARS) 1996 PAP SMEAR 1999 MAMMOGRAM 2018 COLOGUARD 2023 COLONOSCOPY 2023 COLORECTAL CANCER SCREENING 2023 FIT TEST 2023 FOBT 2023 SIGMOIDOSCOPY 2023 VIRTUAL COLONOSCOPY 2023 COVID-19 VACCINE ( - 2023-2 5 season) 2024 Adult Td,Tdap Booster 07/10/2025 07/10/2015 , 05/04/2014 HEPATITIS A VACCINES Aged Out No long er eligible based on patient's age to complete this topic HIB VACCINES Aged Out No longer eligi ble based on patient's age to complete this topic MENINGOCOCCAL VACCINES (ACWY) Aged Out No longer eligible based on patient's age to complete this topic MENINGOCOCCAL VACCINES (B) Aged Out N o longer eligible based on patient's age to complete this topic PNEUMOCOCCAL VACCINES (0-49 years) Aged Out No longer eligible b ased on patient's age to complete this topic Medical Devices Not on file [facility] [place] [address] [address] [facility] Member Subscriber Plan / Payer (Ef fective 2018-Present) Name:Smitha Martinez Relation to Subscriber:Self Name:Smitha Martinez Payer ID:[id number] Group ID:[id number] Type:Medicaid Address: [place] [id number] [place] [address] [place] [address] [address] [facility] [place] [address] [facility] [employer] Care Teams Bellman Driver Relationship Specialty Start Date End Date Jose Cleary MD PCP - General Internal Medicine 03/03/18 Additional Source Comments The information contained in this document represents components of the legal health record. It is not the complete legal health record.[facility]
--- OUTSIDE RECORDS SUMMARY | 2025-04-13 07:19 | XMS_ITS | Patient Health Record ---
Author Organization [facility] Address [address] [place] [address] Care Team Providers Care Boom Conveyor Operator Name Role Phone JAMES YEH Unavailable [phone] Allergies No Known Allergies Reason For Referral No Information Medications Medication SIG (Take, Route, Frequency, Duration) Notes Start Date End Date Status Hydrocortisone Acetate 25 MG 1 suppository Rectal Three times a day; Duration: 10 days 03/21/2019 Not-Taking Hydrocortisone Acetate 2.5 % 1 application to affected area Externally Twice a day; Duration: 10 days 03/21/2019 Not-Takin g valACYclovir HCl 500 MG 1 tablet Orally twice daily; Duration: 3 days Active Social History Tobacco Use: [...] Risk Notes Problem Excessive and frequent menstruation with regular cycle (N92.0) Active confirmed Problem Herpetic vulvovaginitis (56311603) 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 Hospitalization History Reason Date(Month/Year) 2 Vaginal Deliveries See Surgical Hx
[2025-04-13 07:26] LABS: Hematocrit 38.4 % (37.0-47.0); Hemoglobin 13.4 g/dl (12.0-16.0); Imm Gran Abs Auto 0.02 X10*3/uL (0.00-0.03); Imm Gran Pct Auto 0.3 % (0.0-0.4); Lymphocytes Absolute Auto 1.7 X10*3/uL (1.2-4.9); Mean Corpuscular HGB Conc 34.9 g/dl (31.0-35.0); Mean Corpuscular Hemoglobin 30.1 pg (27.0-33.0); Mean Corpuscular Volume 86.3 fL (80.0-98.0); NRBC Abs Auto 0.000 X10*3/uL (0.0-0.012); NRBC Pct Auto 0.0 /100WBC (0.0-0.2); Platelet Count 233 X10*3/uL (160-400); Red Blood Count 4.45 X10*6/uL (4.20-5.50); White Blood Count 7.5 X10*3/uL (4.8-10.8)
[2025-04-13 07:35] LABS: Alanine Aminotransferase 21 U/L (0-31); Albumin Level 4.4 g/dL (3.5-5.0); Alkaline Phosphatase 50 U/L (39-117); Anion Gap 13 (12-20); Aspartate Amino Transferase 19 U/L (5-31); Blood Urea Nitrogen 13 mg/dL (9-16); Calcium 8.6 mg/dL (8.4-10.2); Carbon Dioxide 22 mmol/L (22-29); Chloride 108 mmol/L (96-108); Creatinine Clr Calc Pharmacy 73.5; Estimated Glomerular Filt Rate > 60; Potassium 4.1 mmol/L (3.3-5.1); Sodium 139 mmol/L (135-145); Total Protein 6.5 g/dL (6.5-8.0)
--- NOTE | 2025-04-13 08:13 | ED_ITS ---
HPI - General Adult General Chief complaint: General Medical Stated complaint: bug bite right hand, spreading up arm Time Seen by Provider: 04/13/25 08:10 Source: patient Mode of arrival: ambulatory Limitations: no limitations History of Present Illness ED Provider: Gilma Burciaga PA-C HPI narrative: Patient is a 44 year old assigned female at with a history of CALLIE and asthma presenting to the emergency department today with right hand swelling. Patient states that she is right hand dominant. Patient states that on 04/12/2025 she stuck her hands in some leaves and felt a sharp sting / bite but did not see an insect or a stinger in the area. Patient states that since then she has had increasing swelling, pain, and benadryl is not helping. Patient denies any dizziness, lightheadedness, abdominal pain, nausea, vomiting, fever, chills, blurry vision, double vision, loss of vision, chest pain, difficulty breathing, shortness of breath, back pain, night sweats, pain with urination, increased urinary frequency, increased urinary urgency, blood in her urine or stool, syncope or a near syncopal episode, bowel incontinence, bladder incontinence, or any other complaints at this time. Relieving factors: none Exacerbating factors: none Associated symptoms: denies other symptoms Treatments prior to arrival: other (Benadryl - no relief) Related Data Home Medications ?Medication ?Instructions ?Recorded ?Confirmed No Known Home Meds 08/08/24 04/13/25 Allergies Allergy/AdvReac Type Severity Reaction Status Date / Time hydroxyzine AdvReac Intermediate sweating Verified 04/13/25 06:38 Review of Systems 2 Constitutional: Constitutional: Reports no additional constitutional complaints, Denies chills, Denies fever(s) and Denies night sweats Eyes: Eyes: Reports no additional eye complaints, Denies blurry vision, Denies change in vision, Denies diplopia, Denies eye discharge, Denies loss of vision and Denies eye pain ENT: Denies dizziness Cardiovascular: Cardiovascular: Reports no additional cardiovascular complaints, Denies chest pain, Denies lightheadedness, Denies Loss of Consciousness and Denies dyspnea Respiratory: Respiratory: Reports no additional respiratory complaints and Denies dyspnea Gastrointestinal: Gastrointestinal: Reports no additional gastrointestinal complaints, Denies abdominal pain, Denies melena, Denies hematochezia, Denies change in bowel habits and Denies change in stool character Genitourinary: Genitourinary: Denies hematuria, Denies urinary frequency, Denies dysuria, Denies urinary incontinence, Denies urinary hesitancy and Denies urinary urgency Musculoskeletal: Musculoskeletal: Reports no additional musculoskeletal complaints, Denies numbness and Denies tingling Comments: right hand swelling / pain Neurologic: Denies dizziness, Denies loss of vision, Denies numbness and Denies tingling Psychiatric: Psychiatric: Reports no additional psychiatric complaints Endocrine: Endocrine: Reports no additional endocrine complaints Hematologic/Lymphatic: Hematologic/Lymphatic: Reports no additional hematologic/lymphatic complaints Allergic/Immunologic: Allergic/Immunologic: Reports no additional allergic/immunologic complaints PMF Past Medical History Attestation statement: The following information was validated with the patient. Source: old records reviewed and nursing notes reviewed Medical History Asthma-COPD overlap syndrome Anxiety Insomnia CALLIE (generalized anxiety disorder) Mild recurrent major depression Pain in right axilla Leukopenia Palpitations Celiac disease Blurry vision Vitamin B 12 deficiency Recurrent sinus infections Surgical History H/O breast augmentation Family History Family History Father Diabetes Hypertension CVD (cardiovascular disease) Myocardial infarction Mother Hypertension CVD (cardiovascular disease) Depression Mental health disorder Myocardial infarction Brother In good health Brother In good health Brother Bipolar 1 disorder Sister In good health Substance use disorder Sister In good health Sister In good health Son In good health Daughter In good health Social History Social History Housing: House Alcohol intake: current Alcohol intake frequency: a few times a month Alcohol type: wine and hard liquor Patient Tobacco Use Status: Current everyday Tobacco user Tobacco use type: Cigarette Cigarettes Per Day: 2 e-Cigarette/Vaping Use: Never Used Second Hand Smoke Exposure: No Advance Directives: No Advance Directives Information Provided: Yes Nutrition Risks: No Nutritional Risk service: No Current occupational status: employed Current occupational exposures/hazards: No Cognitive needs: No Hearing needs: No Vision needs: Yes (glasses) Physical Exam ED Vital Signs: Vital Signs - 24 hr 04/13/25 06:38 04/13/25 08:54 Temperature 97.7 F 97.6 F Pulse Rate 67 61 Respiratory Rate 18 20 Blood Pressure 107/62 98/60 Pulse Oximetry 98 100 Oxygen Delivery Method Room Air Room Air BMI result Body Mass Index 23.9 Const General: cooperative, no acute distress, alert and awake Nutritional Appearance: well nourished Orientation/consciousness: patient oriented x3 HENMT Head: Yes normal to inspection and Yes atraumatic Ears: hearing grossly normal bilaterally and external ears normal General nose exam: Normal external nose present, no nasal discharge noted and no epistaxis Face and sinus: Yes normal facial exam, No abrasion and No laceration Mouth: Normal oral and palatal mucosa present, no drooling and no muffled voice Eyes General: appearance normal, both eyes and all related structures Periorbital: periorbital findings normal Eyelids: Yes eyelids normal Conjunctivae: conjunctivae normal Pupils: Equal, round and reactive pupils present EOM: EOMs intact bilaterally Neck Neck: Yes normal visual inspection, Yes full ROM and Yes no lymphadenopathy Resp Effort & Inspection: normal respiratory effort and able to speak in complete sentences Neuro General: patient oriented x3, moves all extremities and CN's II-XI intact bilaterally Cranial nerves: Yes Equal, round and reactive pupils present Cognition (Neuro): normal cognition Extrem Other: significant pain to palpation of the right hand unable to make a fist with the right hand secondary to pain General: Yes capillary refill normal Psych Appearance: grossly normal Mental Status: mental status grossly normal Affect: normal affect Attitude: cooperative Thought process: Normal thought process present Thought content: Normal thought content present Insight: Good insight present (Psych) Medications Administered Generic Name Dose Route Start Last Admin Trade Name Freq PRN Reason Stop Dose Admin Diphenhydramine HCl 25 mg 04/13/25 10:23 04/13/25 10:37 Diphenhydramine Hcl 50 Mg/Ml Vial IVPUSH 25 mg Q6H PRN Administration Allergic Symptoms Enoxaparin Sodium 40 mg 04/13/25 10:15 04/13/25 10:32 Enoxaparin Sodium 40 Mg/0.4 Ml Syringe SUBCUT Not Given Q24H ISHMAEL Doxycycline Hyclate 100 mg/ 250 mls @ 166.67 mls/hr 04/13/25 10:15 04/13/25 12:01 Sodium Chloride IV Infused Q12H ISHMAEL Infusion Lactated Ringer's 1,000 mls @ 100 mls/hr 04/13/25 11:45 04/13/25 12:04 Lr IVCONT 04/13/25 21:44 100 mls/hr .Q10H ISHMAEL Administration Discontinued Medications Generic Name Dose Route Start Last Admin Trade Name Deanq PRN Reason Stop Dose Admin Piperacillin Sod/Tazobactam 50 mls @ 100 mls/hr 04/13/25 08:27 04/13/25 09:43 Sod 3.375 gm/ Sodium Chloride IV 04/13/25 08:56 Infused ONCE ONE Infusion Ibuprofen 400 mg 04/13/25 10:33 04/13/25 10:37 Ibuprofen 400 Mg Tablet PO 04/13/25 10:34 400 mg ONCE ONE Administration Iohexol 100 ml 04/13/25 09:30 04/13/25 09:30 Iohexol 350 Mg/Ml 100 Ml Infus..Btl IV 04/13/25 09:31 85 ml ONCE ONE Administration Methylprednisolone Sodium Succinate 60 mg 04/13/25 08:27 04/13/25 09:09 Methylprednisolone Sod Succ 125 Mg/2 Ml Vial IVPUSH 04/13/25 08:28 60 mg ONCE ONE Administration Medical Decision Making Medical Decision Making MDM Narrative: Patient is a 44 year old assigned female at with a history of CALLIE and asthma presenting to the emergency department today with right hand swelling. Patient's physical exam was as noted in the physical exam portion of this note and concerning for an acute cellulitis. Patient's blood work was unremarkable. I explained my physical exam findings as well as all test results to the patient. I answered all questions asked by the patient. I spoke with the hospitalist team who requested a CT scan with IV contrast of the right hand. Scan was ordered and read as cellulitis + soft tissue swelling but no abscess. Hospitalist team agreed to admission. Patient's clinical presentation is not consistent with sepsis (@0900). Patient was given IV Zosyn and solu-medrol while in the department. Patient verbalized agreement and understanding with this treatment plan and admission. Differential Diagnosis Differential Diagnoses: The differential diagnosis associated with the presentation includes Right hand cellulitis Right hand localized allergic reaction Admission/Observation Consideration of admission/observation: Escalation of care including admission/observation considered Patient admitted as noted in the MDM Rationale portion of this note. Consult Healthcare Provider Management of the patient was discussed with: Hospitalist (agreed to admission as noted in the MDM Rationale portion of this note. ) Lab Data [facility] Lab Attestation statement: I reviewed the patient's lab results. My interpretation of these studies and their corresponding values is that they are grossly normal. 04/13/25 07:16 04/13/25 07:16 Labs: Lab Results 04/13/25 04/13/25 04/13/25 Range/Units 07:16 07:16 08:46 WBC 7.5 (4.8-10.8) X10*3/uL RBC 4.45 (4.20-5.50) X10*6/uL Hgb 13.4 (12.0-16.0) g/dl Hct 38.4 (37.0-47.0) % MCV 86.3 (80.0-98.0) fL MCH 30.1 (27.0-33.0) pg MCHC 34.9 (31.0-35.0) g/dl RDW 12.9 (11.0-16.0) % Plt Count 233 (160-400) X10*3/uL MPV 9.8 (9.4-12.3) fL Immature Gran % (Auto) 0.3 (0.0-0.4) % Neut % (Auto) 69.1 (45-73) % Lymph % (Auto) 23.3 (20-40) % [place] % (Auto) 4.8 (2-11) % Eos % (Auto) 2.0 (0-4) % Baso % (Auto) 0.5 (0-2) % Lymph # (Auto) 1.7 (1.2-4.9) X10*3/uL [place] # (Auto) 0.4 (0.1-1.2) X10*3/uL Eos # (Auto) 0.2 (0.0-0.4) X10*3/uL Baso # (Auto) 0.0 (0.0-0.2) X10*3/uL Abs Immat Gran (auto) 0.02 (0.00-0.03) X10*3/uL Absolute Neuts (auto) 5.2 (2.0-8.3) x10*3/uL Absolute Nucleated RBC 0.000 (0.0-0.012) X10*3/uL Nucleated RBC % (auto) 0.0 (0.0-0.2) /100WBC ESR 2 (0-20) MM/HR Sodium 139 (135-145) mmol/L Potassium 4.1 (3.3-5.1) mmol/L Chloride 108 (96-108) mmol/L Carbon Dioxide 22 (22-29) mmol/L Anion Gap 13 (12-20) BUN 13 (9-16) mg/dL Creatinine 0.79 (0.5-1.4) mg/dL Estim Creat Clear Calc 73.5 Estimated GFR > 60 Random Glucose 109 (60-115) mg/dL Lactic Acid 1.2 (0.5-2.0) mmol/L Calcium 8.6 (8.4-10.2) mg/dL Total Bilirubin 0.5 (0.0-1.0) mg/dL AST 19 (5-31) U/L ALT 21 (0-31) U/L Alkaline Phosphatase 50 (39-117) U/L C-Reactive Protein Cancelled 0.17 Total Protein 6.5 (6.5-8.0) g/dL Albumin 4.4 (3.5-5.0) g/dL Independent Interpretation I performed an independent interpretation of an: CT Scan Interpretation: My interpretation is in agreement with the radiologist's impression of this imaging study. L Report Number: [id number]: Total DLP = 106.00 mGy-cm EXAMINATION: CT HAND WITH CONTRAST, RIGHT CLINICAL INFORMATION: Swelling, evaluate for abscess COMPARISON: None available. TECHNIQUE: Axial CT was performed between the distal forearm and through the fingers with IV contrast. Coronal and sagittal reformatted images were generated from the original axial data set. IV contrast: 85 mL Omnipaque 350 ALARA: The examination used one or more of the following radiation dose reduction techniques: Automated exposure control, iterative reconstruction, and/or adjustment of mA and/or KV. DLP: 106 mGY*cm FINDINGS: Soft tissues: There is increased density of the adipose tissues, particularly in the dorsum of the hand. There is no loculated fluid collection with peripheral enhancement. Flexor and extensor tendons appear grossly intact. Bones: Degenerative cystic changes present in the base of the hamate, orbits and capitate, and third metacarpal head No erosions or osteophytes are seen. There is borderline widening of scapholunate interval. CT/CT hand RT w IV con IMPRESSION: There is generalized edema and/or cellulitis most pronounced in the dorsum of the hand. There is no loculated fluid peripheral enhancement to suggest abscess. There are nonspecific degenerative cystic changes involving hamate, capitate, and third metacarpal head. Borderline widening of scapholunate interval could indicate an underlying partial tear of scapholunate ligament. Electronically signed by: Jose Juan Raza MD 04/13/2025 09:47 AM EDT RP Dictated By: Jose Juan Raza MD Signed By: Electronically signed by Jose Juan Raza MD 04/13/25 0982 Radiology Impression Discussion of test interpretation with radiology: I have reviewed the radiologist's reading. Critical Care Time Critical Care Time Critical Care Time: Yes Total Critical Care Time: 37 Attestation: I spent 46 minutes of Critical Care Time with this patient. This does not include time spent on separately reported billable procedures. Discharge Plan Discharge Clinical Impression: Cellulitis of hand Patient Disposition: Admitted As Inpatient
[2025-04-13] MEDS: iohexoL 350 MG/ML 100 ML INFUS..BTL IV (09:30)
--- NOTE | 2025-04-13 10:13 | P.HPHOSP_ITS ---
History of Present Illness Date of Service: 04/13/25 Attending physician on admission: Devaughn Melendrez Chief Complaint: Right hand swelling This is a 44-year-old female who presents to the emergency department with swelling of her right hand. Yesterday afternoon she was doing yardwork outside the house and stuck her hand into a pile of leaves, she felt a sharp sting/bite and noticed a white area consistent with a bee sting on her finger. Since that time she has noted increasing pain, swelling and redness of her right hand. She is unable to make a full fist and reports persistent pain. She has been taking Benadryl with no significant improvement in her symptoms. She denies any fever, chills. In the emergency department she was afebrile. Lab work was unremarkable, no leukocytosis. ESR normal. She underwent CAT scan of the hand which showed generalized edema and/or cellulitis most pronounced in the dorsum of the hand. There is no loculated fluid enhancement to suggest abscess. There were some degenerative changes and possible underlying partial tear of the scapholunate ligament. In the emergency department she received IV Zosyn and IV Solu-Medrol. Due to significant swelling in the dominant hand and decreased range of motion she will be admitted to the hospital for further management. Review of Systems 2 Review of Systems: Yes all other systems are reviewed and are negative Constitutional: Constitutional: Denies chills and Denies fever(s) ENT: Denies dizziness Cardiovascular: Cardiovascular: Denies chest pain and Denies dyspnea Respiratory: Respiratory: Denies dyspnea Gastrointestinal: Gastrointestinal: Denies abdominal pain Neurologic: Denies dizziness [facility] Medical History Asthma-COPD overlap syndrome Anxiety Insomnia CALLIE (generalized anxiety disorder) Mild recurrent major depression Pain in right axilla Leukopenia Palpitations Celiac disease Blurry vision Vitamin B 12 deficiency Recurrent sinus infections Family History Father Diabetes Hypertension CVD (cardiovascular disease) Myocardial infarction Mother Hypertension CVD (cardiovascular disease) Depression Mental health disorder Myocardial infarction Brother In good health Brother In good health Brother Bipolar 1 disorder Sister In good health Substance use disorder Sister In good health Sister In good health Son In good health Daughter In good health Surgical History H/O breast augmentation Social History Housing: House Alcohol intake: current Alcohol intake frequency: a few times a month Alcohol type: wine and hard liquor Patient Tobacco Use Status: Current everyday Tobacco user Tobacco use type: Cigarette Cigarettes Per Day: 2 e-Cigarette/Vaping Use: Never Used Second Hand Smoke Exposure: No Advance Directives: No Advance Directives Information Provided: Yes Nutrition Risks: No Nutritional Risk service: No Current occupational status: employed Current occupational exposures/hazards: No Cognitive needs: No Hearing needs: No Vision needs: Yes (glasses) Meds Allergies Allergy/AdvReac Type Severity Reaction Status Date / Time hydroxyzine AdvReac Intermediate sweating Verified 04/13/25 06:38 Active Medications: Current Medications Acetaminophen (Acetaminophen 325 Mg Tablet) 650 mg PO Q6H PRN PRN Reason: Pain, Mild 1-3,fever,headache Calcium Carbonate (Calcium Carbonate 750 Mg Tab.Chew) 750 mg PO Q4H PRN PRN Reason: Heartburn Enoxaparin Sodium (Enoxaparin Sodium 40 Mg/0.4 Ml Syringe) 40 mg SUBCUT Q24H ISHMAEL Doxycycline Hyclate 100 mg/ (Sodium Chloride) 250 mls @ 166.67 mls/hr IV Q12H ISHMAEL Magnesium Hydroxide (Milk Of Magnesia 30 Ml Oral.Susp) 30 ml PO DAILY PRN PRN Reason: Constipation Melatonin (Melatonin 3 Mg Tablet) 6 mg PO BEDTIME PRN PRN Reason: Insomnia Morphine Sulfate (Morphine Sulfate 4 Mg/Ml Cartridge) 2 mg IVPUSH Q4H PRN; Protocol PRN Reason: Pain, Severe (Pain Scale 7-10) Oxycodone HCl (Oxycodone Hcl Immed Release 5 Mg Tablet) 5 mg PO Q6H PRN PRN Reason: Pain, Moderate(Pain Scale 4-6) Prednisone (Prednisone 20 Mg Tablet) 40 mg PO DAILY ISHMAEL Sodium Chloride (0.9 % Sodium Chloride Flush 3 Ml Syringe) 3 ml IVFLUSH QSHIFT ISHMAEL Home Medications ?Medication ?Instructions ?Recorded ?Confirmed ?Last Taken ?Type No Known Home Meds 08/08/24 04/13/25 Un known History Physical Exam 2 Vital Signs and Narrative: Vital Signs: Last Vital Signs Temp 97.6 F 04/13/25 08:54 Pulse 61 04/13/25 08:54 Resp 20 04/13/25 08:54 BP 98/60 04/13/25 08:54 Pulse Ox 100 04/13/25 08:54 O2 Del Method Room Air 04/13/25 08:54 BMI result Body Mass Index 23.9 Const: General: cooperative, comfortable, alert and awake Nutritional Appearance: average body habitus Resp: Effort & Inspection: normal respiratory effort Cardio: Rate: regular rate Skin: Other: Right hand generalized edema. erythema of dorsal surface of right hand. Warmth, generalized tenderness. Able to move thumb and 5th finger, decreased range of motion of 2nd 3rd and 4th fingers. No open wounds, or skin lesions appreciated. No fluctuance or induration Results Labs 04/13/25 07:16 04/13/25 07:16 Labs: Laboratory Results - last 24 hr 04/13/25 04/13/25 04/13/25 07:16 07:16 08:46 MCV 86.3 MCH 30.1 MCHC 34.9 RDW 12.9 Plt Count 233 MPV 9.8 Immature Gran % (Auto) 0.3 Neut % (Auto) 69.1 Lymph % (Auto) 23.3 [place] % (Auto) 4.8 Eos % (Auto) 2.0 Baso % (Auto) 0.5 Lymph # (Auto) 1.7 [place] # (Auto) 0.4 Eos # (Auto) 0.2 Baso # (Auto) 0.0 Abs Immat Gran (auto) 0.02 Absolute Neuts (auto) 5.2 Absolute Nucleated RBC 0.000 Nucleated RBC % (auto) 0.0 ESR 2 Anion Gap 13 Estim Creat Clear Calc 73.5 Estimated GFR > 60 Random Glucose 109 Lactic Acid 1.2 Calcium 8.6 Total Bilirubin 0.5 AST 19 ALT 21 Alkaline Phosphatase 50 C-Reactive Protein Cancelled 0.17 Total Protein 6.5 Albumin 4.4 Imaging Radiologist's Impressions: Impressions Hand CT 04/13/25 08:19 IMPRESSION: There is generalized edema and/or cellulitis most pronounced in the dorsum of the hand. There is no loculated fluid peripheral enhancement to suggest abscess. There are nonspecific degenerative cystic changes involving hamate, capitate, and third metacarpal head. Borderline widening of scapholunate interval could indicate an underlying partial tear of scapholunate ligament. Electronically signed by: Jose Juan Raza MD 04/13/2025 09:47 AM EDT RP Assessment and Plan (1) Swelling of right hand: Status: Acute Plan This is a 44-year-old female with history of COPD/asthma overlap syndrome who presents to the emergency department with right hand swelling after insect bite/sting Right hand swelling Likely local reaction to insect bite/sting Continue systemic steroids Empiric antibiotics for possible superimposed cellulitis Orthopedic evaluation Keep right arm elevated pain control Possible underlying partial tear of scapholunate ligament Likely incidental finding Orthopedic evaluation as above soft BP Asymptomatic. not due to sepsis. previous blood pressures has been on the lower side, likely chronic will give gentle IV fluid and monitor closely Asthma/COPD overlap No active exacerbation Medication reconciliation pending at the time of admission. Patient denies taking any medication on a daily basis. DVT prophylaxis-Lovenox/early ambulation Code status-full code Quality Stroke Does the patient have a stroke diagnosis?: No VTE Prior VTE?: No VTE Risk Level:: Medical - moderate - high VTE Device Contraindication: N/A - Device Ordered VTE Drug Contraindication: N/A - Med Ordered
--- NOTE | 2025-04-13 10:14 | PC.NURSE ---
pt comes to ED for evaluation of bug bite/bee sting. on arrival pt's right hand is very swollen, skin is tight and red, and hand is warm. she states she has been stung by a bee before and didn't have this reaction. labs drawn, IV left AC. ABX as charted. vitals stable. pt AOx4, independent and ambulatory. no shortness of breath, airway clear, no respiratory involvement in reaction.
--- NOTE | 2025-04-13 10:46 | PHA.MEDREC ---
Addendum entered by Zahra Cuevas RPh 04/13/25 11:07: reviewed by [facility]. Original Note: Pharmacy Consult ? Medication Reconciliation Pharmacy has completed the medication reconciliation. patient states she is not on any medication.
[2025-04-13] MEDS: Lactated Ringers 1,000 ML 100 ML IVCONT (12:04)
--- NOTE | 2025-04-13 12:58 | P.CONOP_ITS ---
History of Present Illness HPI Consult date: 04/13/25 Chief complaint: right hand swelling Narrative: Patient is a 44 YO F who presents to the hospital for redness and swelling of the R hand after a bug bite Patient reports that she had a bug bite of the R IF yesterday, and the hand grew swollen and red over the last day Patient reports that since she has recieved antibiotics, her hand has improved significantly with regards to redness, still significant edema Patient reports that she is still not able to close her fist, but reports improved ROM CT taken in the ED reveals diffuse edema, no focal fluid collection No other acute complaints or concerns Review of Systems 2 Review of Systems: Yes all other systems are reviewed and are negative PMFSH Past Medical History Medical History Asthma-COPD overlap syndrome Anxiety Insomnia CALLIE (generalized anxiety disorder) Mild recurrent major depression Pain in right axilla Leukopenia Palpitations Celiac disease Blurry vision Vitamin B 12 deficiency Recurrent sinus infections Family History Family History Father Diabetes Hypertension CVD (cardiovascular disease) Myocardial infarction Mother Hypertension CVD (cardiovascular disease) Depression Mental health disorder Myocardial infarction Brother In good health Brother In good health Brother Bipolar 1 disorder Sister In good health Substance use disorder Sister In good health Sister In good health Son In good health Daughter In good health Surgical History Surgical History H/O breast augmentation Social History Social History Housing: House Alcohol intake: current Alcohol intake frequency: a few times a month Alcohol type: wine and hard liquor Patient Tobacco Use Status: Current everyday Tobacco user Tobacco use type: Cigarette Cigarettes Per Day: 2 e-Cigarette/Vaping Use: Never Used Second Hand Smoke Exposure: No Advance Directives: No Advance Directives Information Provided: Yes Nutrition Risks: No Nutritional Risk service: No Current occupational status: employed Current occupational exposures/hazards: No Cognitive needs: No Hearing needs: No Vision needs: Yes (glasses) Meds Allergies Allergy/AdvReac Type Severity Reaction Status Date / Time hydroxyzine AdvReac Intermediate sweating Verified 04/13/25 06:38 Active Medications: Current Medications Acetaminophen (Acetaminophen 325 Mg Tablet) 650 mg PO Q6H PRN PRN Reason: Pain, Mild 1-3,fever,headache Calcium Carbonate (Calcium Carbonate 750 Mg Tab.Chew) 750 mg PO Q4H PRN PRN Reason: Heartburn Diphenhydramine HCl (Diphenhydramine Hcl 50 Mg/Ml Vial) 25 mg IVPUSH Q6H PRN PRN Reason: Allergic Symptoms Last Admin: 04/13/25 10:37 Dose: 25 mg Enoxaparin Sodium (Enoxaparin Sodium 40 Mg/0.4 Ml Syringe) 40 mg SUBCUT Q24H [facility] Last Admin: 04/13/25 10:32 Dose: Not Given Doxycycline Hyclate 100 mg/ (Sodium Chloride) 250 mls @ 166.67 mls/hr IV Q12H [facility] Last Infusion: 04/13/25 12:01 Dose: Infused Lactated Ringer's (Lr) 1,000 mls @ 100 mls/hr IVCONT .Q10H [facility] Stop: 04/13/25 21:44 Last Admin: 04/13/25 12:04 Dose: 100 mls/hr Magnesium Hydroxide (Milk Of Magnesia 30 Ml Oral.Susp) 30 ml PO DAILY PRN PRN Reason: Constipation Melatonin (Melatonin 3 Mg Tablet) 6 mg PO BEDTIME PRN PRN Reason: Insomnia Morphine Sulfate (Morphine Sulfate 4 Mg/Ml Cartridge) 2 mg IVPUSH Q4H PRN; Protocol PRN Reason: Pain, Severe (Pain Scale 7-10) Oxycodone HCl (Oxycodone Hcl Immed Release 5 Mg Tablet) 5 mg PO Q6H PRN PRN Reason: Pain, Moderate(Pain Scale 4-6) Prednisone (Prednisone 20 Mg Tablet) 40 mg PO DAILY [facility] Sodium Chloride (0.9 % Sodium Chloride Flush 3 Ml Syringe) 3 ml IVFLUSH QSHIFT [facility] Home Medications ?Medication ?Instructions ?Recorded ?Confirmed ?Last Taken ?Type No Known Home Meds 08/08/24 04/13/25 Un known History Physical Exam 2 Vital Signs: Vital Signs: Last Vital Signs Temp 98.0 F 04/13/25 12:19 Pulse 82 04/13/25 12:19 Resp 17 04/13/25 12:19 BP 94/50 L 04/13/25 12:19 Pulse Ox 97 04/13/25 12:19 O2 Del Method Room Air 04/13/25 12:19 BMI result Body Mass Index 23.9 Extrem: Other: Patient is alert, oriented, and in no acute distress. Neuro: Normal sensation of the tips of all digits of the right hand at this time Vascular: Cap refill brisk Pain: Mild tenderness to palpation of the dorsal R hand Pain with flexion of all digits of the R hand, improved from this morning ROM: Patient is able to actively flex to approximately 40-50% to a closed fist Skin: No lacerations or abrasions. General: No ecchymosis, erythema, or evidence of infection. Psych: Appears grossly normal Affect normal Attitude cooperative Results Labs 04/13/25 07:16 04/13/25 07:16 Labs: H & H 04/13/25 Range/Units 07:16 Hgb 13.4 (12.0-16.0) g/dl Hct 38.4 (37.0-47.0) % All other labs normal. Diagnostic results Wrist/Hand CT: report reviewed and image reviewed Assessment and Plan (1) Cellulitis of right hand: Status: Acute Plan 1. Cellulitis of R hand No abscess or fluid collection on CT, no evidence on physical exam No acute surgical intervention indicated at this time Appears to be consistent with cellulitis Continue abx If admitted to hospital tomorrow, would recommend OT while inpatient Continue with all other recs per medicine Procedures Date of Service Date of Service: 04/13/25
--- NOTE | 2025-04-13 17:18 | PC.NURSE ---
Addendum entered by Samantha Stark RN 04/13/25 17:26: Patient is a 44-year-old female with history of COPD/asthma overlap syndrome who presents to the emergency department with right hand swelling after insect bite/sting to right second finger with increase swelling, redness and itching to the right upper extremity. Evaluated by ortho and no surgical intervention needed at this time. Alert and oriented. Lungs clear bilat. Respirations even and non-tender. Right arm remains swollen with redness especially her right 2nd finger. c/o pruritis to the area. Original Note: Medical History Asthma-COPD overlap syndrome Anxiety Insomnia CALLIE (generalized anxiety disorder) Mild recurrent major depression Pain in right axilla Leukopenia Palpitations Celiac disease Blurry vision Vitamin B 12 deficiency Recurrent sinus infection
[2025-04-13] MEDS: 0.9 % Sodium Chloride Flush 3 ML SYRINGE IVFLUSH (22:38)
[2025-04-14 03:32] VITALS: BP 93/51; PULSE 59; RESP 18; TEMP 36.7; O2SAT 97
[2025-04-14 07:35] VITALS: BP 99/58; PULSE 61; RESP 14; TEMP 36.6; O2SAT 99
[2025-04-14] MEDS: 0.9 % Sodium Chloride Flush 3 ML SYRINGE IVFLUSH (07:51)
--- NOTE | 2025-04-14 09:25 | MHC.CM.PN ---
pt lives w/family is independet and still working she has a ride home dc plan home n/s
--- NOTE | 2025-04-14 10:40 | P.DS_ITS ---
DS: Providers Provider Date of Service: 04/14/25 Date of admission: 04/13/25 10:06 Date of discharge: 04/14/25 Primary care physician: Mandy Stovall MD Consults: 04/13/25 10:07 Consult to Orthopedics Routine Consulting Provider: [facility] Reason for consultation: right hand welling Has provider been notified: No [facility]charging clinician: Ashley Floyd DS: Diagnosis Discharge Diagnosis (1) Cellulitis of right hand: Status: Acute DS: Summary Hospital Course Hospital Course: From H&P on the day of admission This is a 44-year-old female who presents to the emergency department with swelling of her right hand. Yesterday afternoon she was doing yardwork outside the house and stuck her hand into a pile of leaves, she felt a sharp sting/bite and noticed a white area consistent with a bee sting on her finger. Since that time she has noted increasing pain, swelling and redness of her right hand. She is unable to make a full fist and reports persistent pain. She has been taking Benadryl with no significant improvement in her symptoms. She denies any fever, chills. In the emergency department she was afebrile. Lab work was unremarkable, no leukocytosis. ESR normal. She underwent CAT scan of the hand which showed generalized edema and/ or cellulitis most pronounced in the dorsum of the hand. There is no loculated fluid enhancement to suggest abscess. There were some degenerative changes and possible underlying partial tear of the scapholunate ligament. In the emergency department she received IV Zosyn and IV Solu-Medrol. Due to significant swelling in the dominant hand and decreased range of motion she will be admitted to the hospital for further management. Right hand swelling Likely local reaction to insect bite/sting. She was treated with antihistamines, systemic steroids and empiric antibiotics for possible super imposed cellulitis although there was no white count or fever to suggest infection and her lactic acid was normal. She was seen by the orthopedic team and no acute intervention was recommended. They did recommend occupational therapy evaluation however the patient declined. Swelling and range of motion have improved although some swelling remains. She is encouraged to monitor closely for signs of infection such as fever or redness. Discussed possible additional overnight stay in the hospital but she is eager to return home today. Blood cultures are negative at 24 hours. She will be discharged home with a course of oral antibiotics and prednisone. Possible underlying partial tear of scapholunate ligament Likely incidental finding. Patient denies hand pain prior to this acute incident. Can follow-up outpatient if has ongoing hand pain after this episode of swelling resolves. soft BP Patient reports her blood pressure was always on the low side. Asymptomatic. not due to sepsis. She is asymptomatic. Time Attestation Discharge Coordination Time (in mins): 32 Quality: Safe Use of Opioids Does Pt have an Active Cancer Diagnosis on the Problem List?: No Quality: Stroke Does the patient have a stroke diagnosis?: No Physical Exam Vital Signs: Vital Signs: Last Vital Signs Temp 97.8 F 04/14/25 07:35 Pulse 61 04/14/25 07:35 Resp 14 04/14/25 07:35 BP 99/58 L 04/14/25 07:35 Pulse Ox 99 04/14/25 07:35 O2 Del Method Room Air 04/14/25 07:35 BMI result Body Mass Index 23.9 Const: Other: non-toxic appearing General: cooperative, comfortable, alert and awake Nutritional Appearance: average body habitus Resp: Effort & Inspection: normal respiratory effort Cardio: Rate: regular rate Skin: Other: Right hand swelling improving, erythema resolved, range of motion improving able to make nearly complete fist Discharge Plan Discharge Patient Disposition: Home, Self-Care Discharge Diagnosis: Right hand swelling Referrals: Mandy Orantes MD [Primary Care Provider, Internal Medicine] - 1 Week Discharge Medications: New doxycycline monohydrate 100 mg tablet 100 mg PO BID 5 Days Qty: 10 0RF prednisone 20 mg tablet 40 mg PO DAILY 5 Days Qty: 10 0RF loratadine [Claritin] 10 mg tablet 10 mg PO Q24H 10 Days Qty: 10 0RF Discharge Orders: Discharge Order (Routine); Ordered 04/14/25 Ordered By: Ashley Floyd Activity on Discharge: As tolerated Stand Alone Forms: Patient Portal Discharge page Print Language: Turkmen Care Plan Goals: See below Health Concerns: Right hand swelling likely local inflammatory reaction from insect bite/sting with possible superimposed cellulitis Plan of Treatment: Complete course of antibiotics and prednisone as prescribed Monitor for signs of infection such as fever, increased redness or swelling-in this event return to the emergency department call to schedule follow up appointment with PCP in 1-2 weeks Assessment: See discharge summary
[2025-04-14] MEDS: oxyCODONE HCl Immed Release 5 MG TABLET PO (11:39)
--- NOTE | 2025-04-14 11:44 | MHC.CM.PN ---
pt dcd home self care
== END 2025-04-14 11:48 | disposition home or self-care (01) ==
LOC: HO.ED 09:02 → HO.EDOVER 10:41 → HO.S3 19:03
PROVIDERS: Physician Assistant Medical; Admitting Provider Physician Assistant Medical; Emergency Provider Emergency Medicine Emergency Medical Services; PCP Internal Medicine; Visit Provider Physician Assistant Medical
DX: L03.113 Cellulitis of right upper limb (principal); M79.89 Other specified soft tissue disorders; J44.89 Other specified chronic obstructive pulmonary disease; F41.9 Anxiety disorder, unspecified
CPT/HCPCS: 36415; 73201; 80053; 83605; 85025; 85652; 86140; 87040; 96361; 96365; 96366; 96367; 96375; 96376; 99221; 99285; J1200; J1271; J2543; J2919; J7120; Q9967

== ENCOUNTER → 2025-04-13 09:05 | Outpatient (BNV) | payer OTHER, SELFPAY | PROVIDERS: Emergency Provider Emergency Medicine Emergency Medical Services; PCP Internal Medicine; Visit Provider Radiology Diagnostic Radiology | DX: R22.31 Localized swelling, mass and lump, right upper limb (principal) | CPT/HCPCS: 73201 ==

== ENCOUNTER → 2025-04-13 10:06 | Outpatient (BNV) | payer OTHER, SELFPAY | PROVIDERS: Admitting Provider Physician Assistant Medical; Emergency Provider Emergency Medicine Emergency Medical Services; PCP Internal Medicine; Visit Provider Physician Assistant Medical | DX: M79.89 Other specified soft tissue disorders (principal) | CPT/HCPCS: 99223 ==

== ENCOUNTER → 2025-04-13 10:06 | Outpatient (BNV) | payer OTHER, SELFPAY | PROVIDERS: Admitting Provider Physician Assistant Medical; Emergency Provider Emergency Medicine Emergency Medical Services; PCP Internal Medicine | DX: L03.113 Cellulitis of right upper limb (principal) | CPT/HCPCS: 99222 ==

== ENCOUNTER 2025-05-22 15:19 | Outpatient (AMB) | payer OTHER, SELFPAY ==
[2025-05-22 15:24] VITALS: BP 110/70; PULSE 62; TEMP 36.7; O2SAT 98; BMI 25.2
--- NOTE | 2025-05-22 15:24 | AM.OFFWIN_ITS ---
Intake Vital Signs 05/22/25 15:24 Height 5 ft 3 in Weight 142 lb BMI 25.2 BP 110/70 Blood Pressure Location Lt brachial Position Sitting Pulse 62 Pulse Source Pulse Oximeter Temp 98.0 F Temp Source Oral Pulse Oximetry (%) 98 Intake Visit Reasons: EP Respiratory, sinus? Patient Tobacco Use Status: Former Tobacco user Allergies hydroxyzine Adverse Reaction (Intermediate, Verified 05/22/25 15:25) sweating Do you need a note to return to daycare/school/sports/work: Yes HPI HPI Comments History of Present Illness Details History of Present Illness - The patient is a 44-year-old female pr esenting with symptoms of sinusitis and allergic rhinitis following a recent COVID-19 infection. - Persistent symptoms have been present for approximately three and a half weeks since her COVID-19 infection. - She was treated with Paxlovid during h er COVID-19 infection. - Current symptoms include nasal congest ion, rhinorrhea with green discharge, facial pressure, and itchy ears and throat. - Despite using multiple [id number] r medications, including Zyrtec and DayQuil, symptoms persist. - She has a history of recurrent sinus i nfections and anticipates a bronchial infection in the coming month. - The patient has a history of asthma, f or which she uses an inhaler as needed. - She denies any medication allergies. Physical Exam General: Cooperative, healthy appearing, comfortable, no acute distress and well developed Head: Normal to inspection Ears: Hearing grossly normal bilaterally. No tragus or mastoid tenderness noted. Auditory canals clear bilaterally. TM's normal, not bulging. No fluid noted. Nose: Normal external nose present. Moist mucosa. Turbinates normal bilaterally, not boggy. Face and sinus: Tenderness to palpation of the frontal and maxillary sinuses bilaterally. Neck: Normal visual inspection and Yes full ROM. No lymphadenopathy noted. Respiratory: Normal respiratory effort and able to speak in complete sentences. Clear to auscultation bilaterally Cardiovascular: Regular rate and rhythm. Normal S1 and S2 GI: Normal to inspection. Soft to palpation and nontender, nondistended. No guarding noted. Skin: No rashes or lesions noted REPLACED BY [facility] Medical History Asthma-COPD overlap syndrome Anxiety Insomnia CALLIE (generalized anxiety disorder) Mild recurrent major depression Pain in right axilla Leukopenia Palpitations Celiac disease Blurry vision Vitamin B 12 deficiency Recurrent sinus infections Surgical History H/O breast augmentation Family History Father Diabetes Hypertension CVD (cardiovascular disease) Myocardial infarction Mother Hypertension CVD (cardiovascular disease) Depression Mental health disorder Myocardial infarction Brother In good health Brother In good health Brother Bipolar 1 disorder Sister In good health Substance use disorder Sister In good health Sister In good health Son In good health Daughter In good health Social History Housing: House Alcohol intake: current Alcohol intake frequency: a few times a month Alcohol type: wine and hard liquor Patient Tobacco Use Status: Former Tobacco user Tobacco use type: Cigarette Cigarettes Per Day: 2 e-Cigarette/Vaping Use: Never Used Second Hand Smoke Exposure: No service: No Current occupational status: employed Current occupational exposures/hazards: No Cognitive needs: No Hearing needs: No Vision needs: Yes (glasses) Review of Systems Const All systems reviewed & are unremarkable except as noted in HPI and below Physical Exam Vital Signs: Last Vital Signs Temp 98.0 F 05/22/25 15:24 Pulse 62 05/22/25 15:24 BP 110/70 05/22/25 15:24 Pulse Ox 98 05/22/25 15:24 BMI result Body Mass Index 25.2 Assessment & Plan Assessment & Plan (1) Sinusitis: Code(s): J32.9 - Chronic sinusitis, unspecified Qualifiers: Sinusitis location: pansinusitis Chronicity: acute Recurrence: recurrent Qualified Code(s): J01.41 - Acute recurrent pansinusitis Plan Most likely sinusitis Plan - augmentin BID for 10 days - tylenol or motrin as needed for pain or fever - continue with flonase and allergy medications - steam showers or Neti pot - follow up with PCP Medications: New amoxicillin-pot clavulanate 875-125 mg 1 tab PO Q12H 20 tabs 0RF 10 days Coding Level of Care Code Est Pt Level 3 (28483) Diagnoses Acute recurrent pansinusitis J01.41 Sinusitis location: pansinusitis Chronicity: acute Recurrence: recurrent
== END 2025-05-22 16:14 | disposition home or self-care (01) ==
PROVIDERS: PCP Internal Medicine; Visit Provider Physician Assistant Medical
DX: J01.41 Acute recurrent pansinusitis (principal)

== ENCOUNTER → 2025-05-22 15:19 | Outpatient (BNVA) | payer OTHER, SELFPAY | PROVIDERS: PCP Internal Medicine; Visit Provider Physician Assistant Medical | DX: J01.41 Acute recurrent pansinusitis (principal) | CPT/HCPCS: 99212 ==

== ENCOUNTER 2025-06-06 10:03 | Outpatient (AMB) | payer OTHER, SELFPAY ==
--- OUTSIDE RECORDS SUMMARY | 2024-03-11 04:30 | XMS_ITS ---
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 Annual KITCHEN LEAD Physical. 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 S he has been in state [...] mammogram was 2-3 yrs ago - at [place]. She does have a family history of colon cancer. She has had a colonoscopy. The most recent colonoscopy was . T he patient does *not exercise. * ROS: A nnual Football Scout Exam ROS: Bowel habit changes d enies. [...] History: M other: alive 79 yrs, Arthritis, [place] x 2. F ather: alive 79 yrs, Diabetes, Quad Bypass.?Sister Concepción: alive 59 yrs. 3 brother(s) , 3 sister(s) . . Denies family history of breast, colon, uterine or ovarian cancers. Objective: * Vitals: * Examination: G eneral Examination: GENERAL APPEARANCE: i n no acute distress, well developed, well nourished, casting operator present in room. HEAD: n ormocephalic, atraumatic. [...] * Follow Up: 1 Year (Reason: Yearly Football Scout Exam) * Images: Billing Information: * Visit Code: 33618 Preventive Care Est Pt. Age 40-64. 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 She has been in state of [...] mammogram was 2-3 yrs ago - at [place]. She does have a family history of colon cancer. She has had a colonoscopy. The most recent colonoscopy was . The patient does *not exercise. Examination Category Sub-Category Detail Notes Category Not es General Examination GENERAL APPEARANCE: in no ac [place] distress, well developed, well nourished, casting operator present in room HEAD: normocephalic, atrau matic [...]
--- OUTSIDE RECORDS SUMMARY | 2025-01-06 09:00 | XMS_ITS ---
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 S he has been in state [...] mammogram was 3-4 yrs ago - at [place]. She does have a family history of colon cancer. She has had a colonoscopy. The most recent colonoscopy was . T he patient does *not exercise. * ROS: A nnual Extrusion Press Operator Exam ROS: Bowel habit changes d enies. [...] no acute distress, well developed, well nourished, cyanide pot tender present in room. HEAD: n ormocephalic, atraumatic. [...] * Follow Up: 1 Year (Reason: Yearly Extrusion Press Operator Exam) * Images: Billing Information: * Visit Code: 88806 Preventive Care Est Pt. Age 40-64. 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 She has been in state of [...] mammogram was 3-4 yrs ago - at [place]. She does have a family history of colon cancer. She has had a colonoscopy. The most recent colonoscopy was . The patient does *not exercise. Examination Category Sub-Category Detail Notes Category Not es General Examination GENERAL APPEARANCE: in no ac [place] distress, well developed, well nourished, cyanide pot tender present in room HEAD: normocephalic, atrau matic [...]
[2025-06-06 10:06] VITALS: BP 110/70; PULSE 80; TEMP 36.3; O2SAT 99; BMI 25.4
--- NOTE | 2025-06-06 10:06 | MHC.PC.OV ---
Vital Signs 06/06/25 10:06 Height 5 ft 3 in Weight 143 lb 8 oz BMI 25.4 BP 110/70 Blood Pressure Location Rt brachial Position Sitting Pulse 80 Pulse Source Pulse Oximeter Temp 97.4 F Temp Source Temporal Artery Scan Pulse Oximetry (%) 99 Oxygen Delivery Method Room Air Intake Visit Reasons: lump in her trout choking in her sleep Allergies hydroxyzine Adverse Reaction (Intermediate, Verified 06/06/25 10:10) sweating Medication List - Last Reconciled 06/06/25 by Alex Camacho MD No Known Home Meds Tobacco use date assessed: 06/06/25 Dental Screening Dental Screen Date: 06/06/25 Did you have a dental visit in the last 12 months?: Yes Did you have a dental problem in the last 6 months where you did not have access to dental care?: No Was dental information given to patient?: Patient has dentist HPI HPI Comments History of Present Illness Details The patient is a 44-year-old female presenting with choking episodes during sleep, allergies and cough. The patient reports a sensation of a lump in her throat, which was investigated with an endoscopy that did not reveal significant findings. She reports a history of Chronic Obstructive Pulmonary Disease (COPD) diagnosed after a pulmonary function test, with symptoms exacerbated by recent COVID-19 infection requiring antibiotics. She experiences wheezing and phlegm production, particularly at night, leading to choking episodes. The patient has a history of smoking for 28 years and reports exposure to occupational hazards without protective measures, contributing to her respiratory issues. 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 She describes symptoms consistent with allergic rhinitis, including postnasal drip and reliance on antihistamines like Benadryl and Zyrtec for symptom control. The patient has not pursued allergy shots due to logistical challenges and cost. She has experienced significant weight gain of 20 pounds over the past year despite quitting alcohol and maintaining a consistent diet. The patient has a history of constipation, which she manages with dietary modifications, including reducing gluten which have provided some relief. [facility] Medical History Asthma-COPD overlap syndrome Anxiety Insomnia CALLIE (generalized anxiety disorder) Mild recurrent major depression Pain in right axilla Leukopenia Palpitations Celiac disease Blurry vision Vitamin B 12 deficiency Recurrent sinus infections Surgical History H/O breast augmentation Family History Father Diabetes Hypertension CVD (cardiovascular disease) Myocardial infarction Mother Hypertension CVD (cardiovascular disease) Depression Mental health disorder Myocardial infarction Brother In good health Brother In good health Brother Bipolar 1 disorder Sister In good health Substance use disorder Sister In good health Sister In good health Son In good health Daughter In good health Social History Housing: House Alcohol intake: current Alcohol intake frequency: a few times a month Alcohol type: wine and hard liquor Patient Tobacco Use Status: Former Tobacco user Tobacco use type: Cigarette Cigarettes Per Day: 2 e-Cigarette/Vaping Use: Never Used Second Hand Smoke Exposure: No service: No Current occupational status: employed Current occupational exposures/hazards: No Cognitive needs: No Hearing needs: No Vision needs: Yes (glasses) Questionnaire PHQ-9 Over the last 2 weeks, how often have you been bothered by any of the following problems? 1. Little interest or pleasure in doing things: not at all 2. Feeling down, depressed, or hopeless: not at all 3. Trouble falling or staying asleep, or sleeping too much: several days 4. Feeling tired or having little energy: several days 5. Poor appetite or overeating: not at all 6. Feeling bad about yourself - or that you are a failure or have let yourself or your family down: not at all 7. Trouble concentrating on things, such as reading the newspaper or watching television: not at all 8. Moving or speaking so slowly that other people could have noticed. Or the opposite - being so fidgety or restless that you have been moving around a lot more than usual: not at all 9. Thoughts that you would be better off or of hurting yourself in some way: not at all Total score: 2 Source: Developed by Drs. Jeremiah Layne, Maine Khan, Henry Patel and colleagues, with an educational abdoulaye from [employer]. Thrive Questionnaire Date Thrive assessed: 06/06/25 I am a: Patient What is your living situation today?: I have a steady place to live Within the past 12 months, did the food you bought not last and you didn't have the money to get more?: Never true Within the past 12 months, did you worry whether your food would run out before you got money to buy more?: Never true Do you have trouble paying for medicines?: I choose not to answer this question Do you have trouble getting transportation to medical appointments?: No Do you have trouble paying your heating and electricity bill?: I choose not to answer this question Do you have trouble taking care of your child, family member or friend?: No Do you have trouble with day-to-day activities such as bathing, preparing meals, shopping, managing finances, etc.?: No Are you currently unemployed and looking for a job?: No Are you interested in more education?: No Please select the resources that you would like help with: None Currently or been in a relationship where the following occur: No concerns reported THRIVE Score: 0 AUDIT C Alcohol Use Questionnaire (AUDIT-C) 1. How often do you have a drink containing alcohol?: Monthly or less 2. How many drinks containing alcohol do you have on a typical day when you are drinking?: 1 or 2 3. How often do you have six or more drinks on one occasion?: Never Total Score: 1 CALLIE-7 AMB Questionnaire CALLIE-7 Date CALLIE - 7 assessed: 06/06/25 Feeling nervous, anxious, or on edge: 0 = Not at all Not being able to stop or control worryin = Not at all Worrying too much about different things: 0 = Not at all Trouble relaxin = Not at all Being so restless that it is hard to sit still: 0 = Not at all Becoming easily annoyed or irritable: 0 = Not at all Feeling afraid as if something awful might happen: 0 = Not at all Total CALLIE-7 score (0-4 normal; 5-9 mild; 10-14 moderate; 15-21 severe): 0 Source: Developed by Drs. Jeremiah Layne, Maine Khan, Henry Patel and colleagues, with an educational abdoulaye from [employer]. CALLIE-7 Assessment Billing CALLIE-7 Assessment Tool: CALLIE-7 Assessment 24631 Review of Systems Const Details: Positives besides what was mentioned in HPI are in BOLD Constitutional: No Weight Change, No Fever, No Chills, No Night Sweats, No Fatigue, No Malaise ENT/Mouth: No Hearing Changes, No Ear Pain, No Nasal Congestion, No Sinus Pain, No Hoarseness, No sore throat, No Rhinorrhea, No Swallowing Difficulty Eyes: No Eye Pain, No Swelling, No Redness, No Foreign Body, No Discharge, No Vision Changes Cardiovascular: No Chest Pain, No SOB, No PND, No Dyspnea on Exertion, No Orthopnea, No Claudication, No Edema, No Palpitations Respiratory: No Cough, No Sputum, No Wheezing, No Smoke Exposure, No Dyspnea Gastrointestinal: No Nausea, No Vomiting, No Diarrhea, No Constipation, No Pain, No Heartburn, No Anorexia, No Dysphagia, No Hematochezia, No Melena, No Flatulence, No Jaundice Genitourinary: No Dysmenorrhea, No DUB, No Dyspareunia, No Dysuria, No Urinary Frequency, No Hematuria, No Urinary Incontinence, No Urgency, No Flank Pain, No Urinary Flow Changes, No Hesitancy Musculoskeletal: No Arthralgias, No Myalgias, No Joint Swelling, No Joint Stiffness, No Back Pain, No Neck Pain, No Injury History Skin: No Skin Lesions, No Pruritis, No Hair Changes, No Breast/Skin Changes, No Nipple Discharge Neuro: No Weakness, No Numbness, No Paresthesias, No Loss of Consciousness, No Syncope, No Dizziness, No Headache, No Coordination Changes, No Recent Falls Psych: No Anxiety/Panic, No Depression, No Insomnia, No Personality Changes, No Delusions, No Rumination, No SI/HI/AH/VH, No Social Issues, No Memory Changes, No Violence/Abuse Hx., No Eating Concerns Heme/Lymph: No Bruising, No Bleeding, No Transfusions History, No Lymphadenopathy Endocrine: No Polyuria, No Polydipsia, No Temperature Intolerance Physical exam (Primary Care) Vital Signs: Last Vital Signs Temp 97.4 F 06/06/25 10:06 Pulse 80 06/06/25 10:06 BP 110/70 06/06/25 10:06 Pulse Ox 99 06/06/25 10:06 Oxygen Delivery Method Room Air 06/06/25 10:06 BMI result Body Mass Index 25.4 Tobacco/Smoking Status: Tobacco use Status Tobacco use date assessed 06/06/25 06/06/25 10:12 Patient Tobacco Use Status Former Tobacco user 06/06/25 10:12 Tobacco use type Cigarette 06/06/25 10:12 e-Cigarette/Vaping Use Never Used 06/06/25 10:12 PHQ-9: PHQ-9 Score PHQ-9: Total score 2 06/06/25 10:12 Thrive Assessment: Date of Thrive Assessment Date Thrive assessed 06/06/25 06/06/25 10:12 Currently or been in a relationship where the following occur: No concerns reported Const Other: Pertinent findings are in BOLD GENERAL APPEARANCE NAD, activity normal for age, well developed/ well nourished, no cyanosis, pallor, or diaphoresis. EYES lids/conjunctiva normal. EARS/NOSE/THROAT Mucous membranes moist, nares normal, lips/teeth normal uvula midline without oral pharyngeal erythema, exudate or swelling TMs normal bilaterally. No lymphangitis/lymphedema. HEAD/NECK normocephalic atraumatic, no facial trauma, neck is supple. RESPIRATORY respiratory effort normal, speaks in full sentences, no tripod position, no accessory muscle use. Lungs clear to auscultation without rhonchi, wheezes, rales CARDIAC Regular rate and rhythm, no edema. ABDOMINAL Soft, ND/NT. No evidence of fluid wave. No pulsatile masses on exam, rebound tenderness, Quinones sign or pain over Mcburney's point. MUSCLES/EXTREMITIES No abnormal range of motion, no swelling. SKIN Warm, pink and dry. No rashes, dermatoses, petechiae or lesions. NEUROLOGICAL Speech is clear and appropriate. Normal level of consciousness. Gait and coordination are normal. 5/5 strength in all extremities. PSYCH Normal mood and affect. Judgement/competence is appropriate Coding Level of Care Code Est Pt Level 4 (33376) Diagnoses Weight gain R63.5 Cough R05.9 Choking T17.308A SOB (shortness of breath) R06.02 Constipation K59.00 Additional Codes CALLIE-7 Assessment Billing - CALLIE-7 Assessment Tool: CALLIE-7 Assessment 80149 ([id number]) Time Spent (min) 30 Assessment & Plan Assessment & Plan (1) Weight gain: Code(s): R63.5 - Abnormal weight gain Category: Medical Plan: TSH and T4. (2) Cough: Code(s): R05.9 - Cough, unspecified Category: Medical Plan: Albuterol PRN. Pulmonary referral. Benadryl and Flonase. (3) Choking: Code(s): T17.308A - Unspecified foreign body in larynx causing other injury, initial encounter Category: Medical Plan: ENT referral for laryngoscopy. Sleep medicine referral to rule out BARTOLO. TSH and neck US. (4) SOB (shortness of breath): Code(s): R06.02 - Shortness of breath Category: Medical Plan: Albuterol PRN. Pulm referral. (5) Constipation: Code(s): K59.00 - Constipation, unspecified Category: Medical Plan: Advised on lifestyle modifications such as Gluten, dairy, red meat and sugar free diet. Orders: Orders TSH reflex Free T4 Today R63.5 - Abnormal weight gain XR chest 2V Today R05.9 - Cough, unspecified US soft tiss head and/or neck Today T17.308A - Unspecified foreign body in larynx causing other injury, initial encounter Referrals Ear/Nose/Throat Referral T17.308A - Unspecified foreign body in larynx causing other injury, initial encounter Pulmonology Referral R06.02 - Shortness of breath Sleep Medicine Referral T17.308A - Unspecified foreign body in larynx causing other injury, initial encounter Medications: New fluticasone propionate 50 mcg/actuation (Allergy Relief (fluticasone)) administer into each nostril 1 spray intranasal DAILY 16 grams 3RF diphenhydramine HCl (Benadryl Allergy) 25 mg PO BEDTIME PRN 30 tabs 3RF sleep albuterol sulfate 90 mcg/actuation (Ventolin HFA) 1 inh inhalation QID PRN 8.5 grams 3RF shortness of breath or wheezing
--- OUTSIDE RECORDS SUMMARY | 2025-06-06 12:11 | XMS_ITS | Patient Health Record ---
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 Hospitalization History Reason Date(Month/Year) 2 Vaginal Deliveries See Surgical Hx
--- OUTSIDE RECORDS SUMMARY | 2025-06-06 12:11 | XMS_ITS | Clinical Summary ---
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 Name Role Phone Jose Cleary MD Primary [...] FOBT 2023 SIGMOIDOSCOPY 2023 VIRTUAL COLONOSCOPY 2023 INFLUENZA VACCINE (#1) 2025 COVID-19 VACCINE ( - 2023-2 5 season) 2025 Adult Td,Tdap Booster 07/10/2025 07/10/2015 , 05/04/2014 [...] topic Medical Devices Not on file Insurance [facility] [address] [place], [place] [id number] [facility] [place] [address] [place] [address] Copyright Agent [facility] Copyright Agent [facility] Member Subscriber Plan / Payer (Ef fective 2018-Present) Name:Smitha Martinez Relation to Subscriber:Self Name:Smitha Martinez Payer ID:[id number] Group ID:[id number] Type:Medicaid Address: [place] [id number] [place], [place] [id number] [employer] Care Teams Water Systems Engineer Relationship Specialty Start Date End Date Jose Cleary MD PCP - General Internal Medicine 03/03/18 Additional Source Comments The information contained in this document represents components of the legal health record. It is not the complete legal health record.[facility]
== END 2025-06-06 10:36 | disposition home or self-care (01) ==
LOC: HO.HMCH 10:04
PROVIDERS: PCP Internal Medicine; Visit Provider Internal Medicine
DX: R63.5 Abnormal weight gain (principal); R05.9 Cough, unspecified; T17.308A Unspecified foreign body in larynx causing other injury, initial encounter; R06.02 Shortness of breath; K59.00 Constipation, unspecified

== ENCOUNTER 2025-06-06 10:03 | Outpatient (REF) | payer OTHER, SELFPAY ==
--- NOTE | ~2025-06-06 | XR_ITS ---
EXAMINATION: XR CHEST CLINICAL INFORMATION: R05.9 - Cough, unspecified COMPARISON: None available. TECHNIQUE: PA and lateral views. FINDINGS: No consolidation, pleural effusion or pneumothorax. Cardiomediastinal silhouette size is small. S-shaped curvature of the thoracolumbar spine. Multilevel thoracic spondylosis, mild to moderate in the mid thoracic spine. Bilateral breast implants. XR/XR chest 2V IMPRESSION: No acute airspace disease. Mid thoracic spondylosis. Electronically signed by: Chandler Huang MD 06/06/2025 11:21 AM EDT
== END 2025-06-06 10:04 | disposition home or self-care (01) ==
LOC: HO.LAB 10:03
PROVIDERS: PCP Internal Medicine; Visit Provider Internal Medicine
DX: R63.5 Abnormal weight gain (principal); R05.9 Cough, unspecified; T17.308A Unspecified foreign body in larynx causing other injury, initial encounter; R06.02 Shortness of breath; K59.00 Constipation, unspecified
CPT/HCPCS: 36415; 71046; 84443

== ENCOUNTER → 2025-06-06 11:00 | Outpatient (BNV) | payer OTHER, SELFPAY | PROVIDERS: PCP Internal Medicine; Visit Provider Radiology Diagnostic Radiology | DX: R05.9 Cough, unspecified (principal) | CPT/HCPCS: 71046 ==

== ENCOUNTER 2025-08-25 09:50 | Outpatient (AMB) | payer OTHER, SELFPAY ==
[2025-08-25 09:58] VITALS: BP 110/67; PULSE 84; O2SAT 98; BMI 25.9
--- NOTE | 2025-08-25 09:58 | MHC.OFFVIS ---
Vital Signs 08/25/25 09:58 Height 5 ft 3 in Weight 146 lb BMI 25.9 BP 110/67 Blood Pressure Location Rt brachial Position Sitting Pulse 84 Pulse Source Pulse Oximeter Pulse Oximetry (%) 98 Oxygen Delivery Method Room Air Intake Visit Reasons: Shortness of breath Allergies hydroxyzine Adverse Reaction (Intermediate, Verified 06/06/25 10:10) sweating HPI HPI Shortness of breath: Details: 45-year-old lady, previous 25+ pack-year smoker, previously followed for asthma/COPD overlap syndrome with significant allergic component, lost to follow-up for the last 5 years, presents to [facility]. Patient states that since the last visit she had quit smoking, however she no longer has access to Breo and she has been relying heavily on albuterol MDI with suboptimal control of her symptoms and significant tachycardia. She does complain of wheezing, particularly in the morning. 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 [facility] Medical History Asthma-COPD overlap syndrome Anxiety Insomnia CALLIE (generalized anxiety disorder) Mild recurrent major depression Pain in right axilla Leukopenia Palpitations Celiac disease Blurry vision Vitamin B 12 deficiency Recurrent sinus infections Surgical History H/O breast augmentation Family History Father Diabetes Hypertension CVD (cardiovascular disease) Myocardial infarction Mother Hypertension CVD (cardiovascular disease) Depression Mental health disorder Myocardial infarction Brother In good health Brother In good health Brother Bipolar 1 disorder Sister In good health Substance use disorder Sister In good health Sister In good health Son In good health Daughter In good health Social History (Updated 08/25/25 @ 10:03 by Stephania Guzman [facility]) Housing: House Alcohol intake: current Alcohol intake frequency: a few times a month Alcohol type: wine and hard liquor Patient Tobacco Use Status: Former Tobacco user Tobacco use type: Cigarette Cigarettes Per Day: 2 Years Smoked: age started 14, 1PPD, quit september 2024 e-Cigarette/Vaping Use: Never Used Second Hand Smoke Exposure: No service: No Current occupational status: employed Current occupational exposures/hazards: No Cognitive needs: No Hearing needs: No Vision needs: Yes (glasses) Review of Systems Card Denies dyspnea and Denies dyspnea on exertion Resp Reports cough, Reports excessive phlegm production, Denies dyspnea, Denies dyspnea on exertion and Reports wheezing Aller/Immun Reports wheezing Physical Exam Vital Signs: Last Vital Signs Pulse 84 08/25/25 09:58 BP 110/67 08/25/25 09:58 Pulse Ox 98 08/25/25 09:58 Oxygen Delivery Method Room Air 08/25/25 09:58 BMI result Body Mass Index 25.9 Const General: no acute distress and alert Nutritional Appearance: not obese Orientation/consciousness: Other orientation findings ( oriented) HEENT Head: Yes atraumatic Eyes General: appearance normal, both eyes and all related structures Sclerae: sclerae normal EOM: EOMs intact bilaterally Neck Neck: Yes supple Lymphatic: no lymphadenopathy noted Resp Effort & Inspection: normal respiratory effort and no use of accessory muscles Auscultation: clear to auscultation bilaterally Cardio Rate: regular rate Rhythm: regular rhythm Heart sounds: no gallops, no murmurs and no rubs Skin General skin exam: other ( warm) Extrem General: No clubbing, No cyanosis and No edema Assessment & Plan Assessment & Plan (1) Asthma-COPD overlap syndrome: Code(s): J44.9 - Chronic obstructive pulmonary disease, unspecified Category: Medical Plan: As patient has poor tolerance of albuterol secondary to tachycardia, will start on empiric Incruse. Will obtain full PFT. (2) Occupational exposure to dust: Code(s): Z57.2 - Occupational exposure to dust Category: Social Hx Plan: Will obtain CT chest. Orders: Orders PFT pulmonary function test Today J44.9 - Chronic obstructive pulmonary disease, unspecified CT chest wo IV con Today Z57.2 - Occupational exposure to dust Medications: New umeclidinium 62.5 mcg/actuation (Incruse Ellipta) 1 inh inhalation DAILY 1 ea 6RF J44.9 - Chronic obstructive pulmonary disease, unspecified Coding Level of Care Code New Pt Level 4 (76353) Diagnoses Asthma-COPD overlap syndrome J44.9 Occupational exposure to dust Z57.2
== END 2025-08-25 10:18 | disposition home or self-care (01) ==
LOC: HO.HPS 09:50
PROVIDERS: PCP Internal Medicine; Referring Provider Internal Medicine; Visit Provider Internal Medicine Pulmonary Disease
DX: J44.9 Chronic obstructive pulmonary disease, unspecified (principal); Z57.2 Occupational exposure to dust
CPT/HCPCS: 99204

== ENCOUNTER → 2025-08-25 09:50 | Outpatient (BNVA) | payer OTHER, SELFPAY | PROVIDERS: PCP Internal Medicine; Referring Provider Internal Medicine; Visit Provider Internal Medicine Pulmonary Disease | DX: J44.9 Chronic obstructive pulmonary disease, unspecified (principal); Z57.2 Occupational exposure to dust; Z87.891 Personal history of nicotine dependence | CPT/HCPCS: 99202 ==

== ENCOUNTER 2025-08-31 13:26 | Outpatient (REF) | payer OTHER, SELFPAY ==
--- OUTSIDE RECORDS SUMMARY | 2024-03-11 03:30 | XMS_ITS ---
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 Physical Encounters Encounter Location Date Provider Diagnosis [facility] [address] [address] 03/11/2024 JAMES YEH Encounter for gynecological examination (general) (routine) without abnormal findings Z01.419 ; Encounter for screening mammogram for malignant neoplasm of breast Z12.31 and Encounter for screening for infections with a predominantly sexual mode of transmission Z11.3 Assessments Encounter Date Diagnosis (ICD Code) Assessment Notes Treatment Notes Treatment Clinical Notes Section Notes 03/11/2024 Encounter for gynecological examination (general) (routine) without abnormal findings (ICD-10 - Z01.419) During the visit, the following areas of concern were addressed: Discussed cervical cancer screening with either cytology alone every 3 years or high risk HPV co-testing every 5 years as per ASCCP guidelines. Advised continued annual pelvic exams. Patient encouraged to increase her level of exercise. SBE technique encouraged/tau ght. Patient reminded when annual mammogram is due. Patient encouraged to keep colon screening up to date. 03/11/2024 Encounter for screening mammogram for malignant neoplasm of breast (ICD-10 - Z12.31) 03/11/2024 Encounter for screening for infections with a predominantly sexual mode of transmission (ICD-10 - Z11.3) Plan Of Treatment Treatment Notes Assessment Notes Encounter for gynecological examination (general) (routine) without abnormal findings During the visit, the following areas of concern were addressed: Discussed cervical cancer screening with either cytology alone every 3 years or high risk HPV co-testing every 5 years as per ASCCP guidelines. Advised continued annual pelvic exams. Patient encouraged to increase her level of exercise. SBE technique encouraged/taught. Patient reminded when annual mammogram is due. Patient encouraged to keep colon screening up to date. Pending Test Test Name Order Date MM Digital Screening Mammogram 3D 2023 Next Appt Details Follow Up: 1 Year, Reason: Y early Inventory Taker Exam Provider Name:JAMES Terrell, 10/26/2025 11:00:00 AM, [address] [facility], [address], [place], [address], Progress Notes * SMITHA HERMANDOB:[birth year] (45 yo F)Acc No.[id number]:03/11/2024 PROGRESS NOTES Patient: SMITHA BULLOCK Provider: Bisi YEH MD :1980 A ge:43 Y S ex:Female Date:03/11/2024 Address:[address] [place], [place] [id number] Subjective: * Chief Complaints: * 1 . 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 S he has been in state of good health since her last exam. She has the following concerns: S he has a history of herpes, and requests refill of Valtrex. S he has received the Modera Covid-19 vaccine. R elationship status: *single . She is *not currently sexually active. Sexual partner(s): male. She does* wish to have STI testing. M enses: *monthly, lasting about a week, very heavy flow. She wears a Poise pad on her heaviest days x 3-4 days. She will change her pad every time she voids, and notes that it appears more than 50% stained. A CBC last year showed no anemia. C ontraception: *abstinence S he does *not report vaginal dryness. She does *think she has had a few hot flashes/night sweats. T he patient has *not had an abnormal pap smear within the last 5 years. Her most recent pap smear was 03/21/19 - NIL, neg HR HPV. Due for cotesting in 2023. S he has not been diagnosed with breast cancer. She does *not have a family history of breast cancer. Her last mammogram was 2-3 yrs ago - at [place]. She does have a family history of colon cancer. She has had a colonoscopy. The most recent colonoscopy was . T he patient does *not exercise. * ROS: A nnual Inventory Taker Exam ROS: Bowel habit changes d enies. B ladder symptoms d enies. V aginal discharge, unusual d enies. V aginal itch or odor d enies. w eight or appetite changes d enies. C hest pains, SOB d enies. d epression d enies.? B reast: Denies B reast lump. D enies N ipple discharge.? H ematology: Denies S wollen glands. S kin: Patient denies c hanging moles. P sychiatric: Denies A nxiety. * Medical History: * Family History: M other: alive 79 yrs, Arthritis, [place] x 2. F ather: alive 79 yrs, Diabetes, Quad Bypass.?Sister Concepción: alive 59 yrs. 3 brother(s) , 3 sister(s) . . Denies family history of breast, colon, uterine or ovarian cancers. Objective: * Vitals: * Examination: G eneral Examination: GENERAL APPEARANCE: i n no acute distress, well developed, well nourished, life underwriter present in room. HEAD: n ormocephalic, atraumatic. NECK/THYROID: n solitario supple, full range of motion, thyroid normal. LYMPH NODES: n o axillary or supraclavicular adenopathy.? SKIN: normal, good turgor, no rashes, no suspicious lesions. BREASTS: normal, no dimpling, no discharge, no drainage, no masses palpable bilaterally, nontender. ABDOMEN: soft, non-tender, non distended without masses or hepatosplenomegay. RECTAL: normal tone, no masses palpable. BACK: no costovertebral angle tenderness. FEMALE GENITOURINARY: V ulva without lesions or masses, vagina pink without abnormal discharge, lesions or masses, cervix appears normal and is not tender to palpation, uterus is normal size, mobile, nontender and anteverted, ovaries are not palpable. NEUROLOGIC: alert and oriented, gait normal. PSYCH: alert, oriented, cognitive function intact, cooperative with exam, good eye contact, mood/affect full range, speech clear. Assessment: * Assessment: 1. E ncounter for gynecological examination (general) (routine) without abnormal findings - Z01.419 (Primary) 2 . E ncounter for screening mammogram for malignant neoplasm of breast - Z12.31 3 . E ncounter for screening for infections with a predominantly sexual mode of transmission - Z11.3 Plan: * Treatment: 2. E ncounter for screening mammogram for malignant neoplasm of breast I maging: MM Digital Screening Mammogram 3D * Follow Up: 1 Year (Reason: Yearly Inventory Taker Exam) * Images: Billing Information: * Visit Code: 75571 Preventive Care Est Pt. Age 40-64. 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 She has been in state of good health since her last exam. She has the following concerns: She has a history of herpes, and requests refill of Valtrex. She has received the Modera Covid-19 vaccine. Relationship status: *single . She is *not currently sexually active. Sexual partner(s): male. She does* wish to have STI testing. Menses: *monthly, lasting about a week, very heavy flow. She wears a Poise pad on her heaviest days x 3-4 days. She will change her pad every time she voids, and notes that it appears more than 50% stained. A CBC last year showed no anemia. Contraception: *abstinence She does *not report vaginal dryness. She does *think she has had a few hot flashes/night sweats. The patient has *not had an abnormal pap smear within the last 5 years. Her most recent pap smear was 03/21/19 - NIL, neg HR HPV. Due for cotesting in 2023. She has not been diagnosed with breast cancer. She does *not have a family history of breast cancer. Her last mammogram was 2-3 yrs ago - at [place]. She does have a family history of colon cancer. She has had a colonoscopy. The most recent colonoscopy was . The patient does *not exercise. Examination Category Sub-Category Detail Notes Category Not es General Examination GENERAL APPEARANCE: in no ac alecia distress, well developed, well nourished, life underwriter present in room HEAD: normocephalic, atrau matic NECK/THYROID: neck supple, full ra nge of motion, thyroid normal ABDOMEN: soft, non-tender, no n distended without masses or hepatosplenomegay NEUROLOGIC: alert and oriented, gait normal SKIN: normal, good turgor, no rashes, no suspicious lesions BACK: no costovertebral an gle tenderness BREASTS: normal, no dimpling, no discharge, no drainage, no masses palpable bilaterally, nontender LYMPH NODES: no axillary or supra clavicular adenopathy RECTAL: normal tone, no mass es palpable PSYCH: alert, oriented, cog nitive function intact, cooperative with exam, good eye contact, mood/affect full range, speech clear FEMALE GENITOURINARY: Vulva without lesi ons or masses, vagina pink without abnormal discharge, lesions or masses, cervix appears normal and is not tender to palpation, uterus is normal size, mobile, nontender and anteverted, ovaries are not palpable
--- OUTSIDE RECORDS SUMMARY | 2025-01-06 08:00 | XMS_ITS ---
Author Organization [facility] Address [address] [place] [address] Care Team Providers Care Ginner Name Role Phone YEHJAMES Unavailable [phone] REASON FOR VISIT Annual COMMODITY BUYER Physical Encounters Encounter Location Date Provider Diagnosis [facility] [address] [address] 01/06/2025 JAMES YEH Encounter for gynecological examination (general) (routine) without abnormal findings Z01.419 ; Encounter for screening mammogram for malignant neoplasm of breast Z12.31 and Encounter for screening for infections with a predominantly sexual mode of transmission Z11.3 Assessments Encounter Date Diagnosis (ICD Code) Assessment Notes Treatment Notes Treatment Clinical Notes Section Notes 01/06/2025 Encounter for gynecological examination (general) (routine) without [...] to keep colon screening up to date. 01/06/2025 Encounter for screening mammogram for malignant neoplasm of breast (ICD-10 - Z12.31) 01/06/2025 Encounter for screening for infections with a [...] Order Date MM Digital Screening Mammogram 3D 2024 Next Appt Details Follow Up: 1 Year, Reason: Y early Director Of Slot Operations Exam Provider Name:JAMES Terrell, 10/26/2025 11:00:00 AM, [address] [facility], [address], [place], [address], Progress Notes * SMITHA HERMANDOB:[birth year] (45 yo F)Acc No.[id number]:01/06/2025 PROGRESS NOTES Patient: SMITHA BULLOCK Provider: Bisi YEH MD :1980 A ge:44 Y S ex:Female Date:01/06/2025 Address:[address] [place], [place] [id number] Subjective: * Chief Complaints: * 1 . Annual COMMODITY BUYER Physical. 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 S he has been in state [...] was 03/21/19 - NIL, neg HR HPV. Overdue for cotesting. S he has not been diagnosed with breast cancer. She does *not have a family history of breast cancer. Her last mammogram was 3-4 yrs ago - at [place]. She does have a family history of colon cancer. She has had a colonoscopy. The most recent colonoscopy was . T he patient does *not exercise. * ROS: A nnual Director Of Slot Operations Exam ROS: Bowel habit changes d enies. [...] sychiatric: Denies A nxiety. * Medical History: Objective: * Vitals: * Examination: G eneral Examination: GENERAL APPEARANCE: i n no acute distress, well developed, well nourished, matrix repairer present in room. HEAD: n ormocephalic, atraumatic. [...] * Follow Up: 1 Year (Reason: Yearly Director Of Slot Operations Exam) * Images: Billing Information: * Visit Code: 94221 Preventive Care Est Pt. Age 40-64. 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 She has been in state of [...] was 03/21/19 - NIL, neg HR HPV. Overdue for cotesting. She has not been diagnosed with breast cancer. She does *not have a family history of breast cancer. Her last mammogram was 3-4 yrs ago - at [place]. She does have a family history of colon cancer. She has had a colonoscopy. The most recent colonoscopy was . The patient does *not exercise. Examination Category Sub-Category Detail Notes Category Not es General Examination GENERAL APPEARANCE: in no ac alecia distress, well developed, well nourished, matrix repairer present in room HEAD: normocephalic, atrau matic [...]
--- NOTE | ~2025-08-31 | US_ITS ---
EXAMINATION: US THYROID CLINICAL INFORMATION: T17.308A - Unspecified foreign body in larynx causing other injury, init... COMPARISON: Ultrasound of soft tissues of the neck on November 09, 2023. No prior ultrasound of the thyroid. TECHNIQUE: Linear transducer grayscale and color Doppler examination with attention to the region of the thyroid. FINDINGS: SIZE: Measurements of the thyroid lobes and nodules are given in sagittal, anteroposterior and transverse dimensions respectively. Right Thyroid Lobe: 4.7 x 1.4 x 1.7 cm, volume 5.7 ml. Parenchyma: The gland echotexture is homogeneous. Thyroid vascularity is normal. Left Thyroid Lobe: 4.7 x 1.0 x 1.4 cm, volume 3.5 ml. Parenchyma: The gland echotexture is homogeneous. Thyroid vascularity is normal. Isthmus: 0.2 cm in maximum AP dimension. Estimated total number of nodules greater than or equal to 1 cm: Zero. Tumbler Dyeing Machine Operator nodules are described as follows: Two right cystic nodules measure up to 0.3 cm. TI-RADS Category 1. NODES: No lymphadenopathy is seen in the tissue surrounding the thyroid gland. Targeted ultrasound was also performed in the area of concern as indicated by the patient at midline of the neck. No suspicious sonographic findings seen. US/US thyroid IMPRESSION: 1. Two right cystic nodules measure up to 0.3 cm. TI-RADS Category 1. 2. No sonographic abnormality in the region of the clinical concern at the midline of the neck. ACR TI-RADS RECOMMENDATION REFERENCE: Ultrasound-guided fine-needle aspiration, followup ultrasound, no further follow up. * TR1 (0 point) and TR2 (2 points): No FNA or follow up. * TR3 (3 points): FNA if more than or equal to 2.5 cm in maximum dimension, followup ultrasound in 1, 3 and 5 years if 1.5 to 2.4 cm in maximum dimension. * TR4 (4-6 points): FNA if more than or equal to 1.5 cm in maximum dimension, followup ultrasound in 1, 2, 3 and 5 years if 1 to 1.4 cm in maximum dimension. * TR5 (more than or equal to 7 points): FNA if more than or equal to 1 cm in maximum dimension, followup ultrasound every year for 5 years if 0.5 to 0.9 cm in maximum dimension. * TR3, TR4 or TR5 nodules that are below the size threshold for followup receive no follow up. Electronically signed by: Jada Hamm MD 08/31/2025 02:35 PM [facility]
--- OUTSIDE RECORDS SUMMARY | 2025-08-31 17:35 | XMS_ITS | Data Portability ---
Author Organization MELANY Javier s, [address] Address [address] [place] [address] Care Team Providers Care Housekeeper/Laundry Assistant Name Role Phone [facility] Primary Care Provider Assessment No assessment recorded. Plan of Treatment Reminders Order Date Submit Date Provider Last Modified By Organization Details Last Modified Time Details Appointments None recorded. Lab urinalysis, dipstick [email or web address] [place] [address], [address] [place] [address], [phone], 19:26:55 test, urine [email or web address] [place] [address], [address] [place] [address], [phone], 19:26:55 Referral emergency medicine referral - diffuse abdominal pain and History of constipatio n x 3 weeks . Need to rule out fecal impaction. patient also complaining of lymph node enlargement left posterior cervical . Need further evaluation and treatment. 2022 023 [email or web address] 26 [facility] Emergency Department, [address] [place], [address], 08:28:32 Procedures None recorded. Surgeries None recorded. Imaging None recorded. Medication Orders None recorded. Patient TargetsNo targets recorded. Patient Instructions Encounter Date Encounter Id Patient Instructions Last Modified By Organization Details Last Modified Time 12/08/2022 [id number] nausea and vomiting: care instructions true Not [...] Analyte Normal = Negati ve Not Available _[facility] [address], [address], 12/08/2022 19:07:57 12/09/19 23 12/08/2022 pregn adama test, urine Unknown Analyte negati ve Not Available [email or web address] [address], [address], 12/08/2022 19:07:57 12/09/19 23 12/08/2022 urina lysis , dipst ick Unknown Analyte Normal = light yellow Not Available [email or web address] [address], [address], 12/08/2022 19:07:12 12/09/19 12/08/2022 urina lysis , dipst ick Unknown Analyte Yellow Not Available [facility] [address] [place] [address], [place], [address], 12/08/2022 19:07:12 12/09/19 23 12/08/2022 urina lysis , dipst ick Unknown Analyte Normal = clear Not Available [facility], [place], [address], 12/08/2022 19:07:12 12/09/19 23 12/08/2022 urina lysis , dipst ick Unknown Analyte Clear Not Available xu [address], [place], [address], 12/08/2022 19:07:12 12/09/19 23 12/08/2022 urina lysis , dipst ick Unknown Analyte Normal = negati ve Not Available [facility], [place], [address], 12/08/2022 19:07:12 12/09/1912/08/2022 urina lysis , dipst ick Unknown Analyte Negati ve Not Available [facility], [place], [address], 12/08/2022 19:07:12 12/09/19 23 12/08/2022 urina lysis , dipst ick Unknown Analyte Normal = Negati ve Not Available [facility] [address] [place] [address], [place], [place], [address], 12/08/2022 19:07:12 12/09/19 23 12/08/2022 urina lysis , dipst ick Unknown Analyte Negati ve Not Available [address] [facility], [place], [place], [address], 12/08/2022 19:07:12 12/09/19 23 12/08/2022 urina lysis , dipst ick Unknown Analyte Normal = Negati ve Not Available [address] hernandez [address], [place], [address], 12/08/2022 19:07:12 12/09/19 23 12/08/2022 urina lysis , dipst ick Unknown Analyte Trace Not Available [address] [place], [place] [address]el[address], [place], [address], 12/08/2022 19:07:12 12/09/19 23 12/08/2022 urina lysis , dipst ick Unknown Analyte Normal = 1.010, 1.015, 1.020 Not Available [facility] [address], [place], [address], 12/08/2022 19:07:12 12/09/19 23 12/08/2022 urina lysis , dipst ick Unknown Analyte 1.015 Not Available [address] [place] [address], [place], [address], 12/08/2022 19:07:12 12/09/19 23 12/08/2022 urina lysis , dipst ick Unknown Analyte Normal = Negati ve Not Available sole hernandez [address], [place], [address], 12/08/2022 19:07:12 12/09/19 23 12/08/2022 urina lysis , dipst ick Unknown Analyte Negati ve Not Available [address] hernandez [address], [place], [address], 12/08/2022 19:07:12 12/09/19 23 12/08/2022 urina lysis , dipst ick Unknown Analyte Normal = 6.5, 7.0, 7.5, 8.0 Not Available sole hernandez [address], [place], [address], 12/08/2022 19:07:12 12/09/1912/08/2022 urina lysis , dipst ick Unknown Analyte 7.0 Not Available [facility] [address], [place], [address], 12/08/2022 19:07:12 12/09/19 23 12/08/2022 urina lysis , dipst ick Unknown Analyte Normal = Negati ve Not Available sole hernandez [address], [place], [address], 12/08/2022 19:07:12 12/09/19 23 12/08/2022 urina lysis , dipst ick Unknown Analyte Negati ve Not Available sole hernandez [address], [place], [address], 12/08/2022 19:07:12 12/09/19 23 12/08/2022 urina lysis , dipst ick Unknown Analyte Normal = 0.2, 1.0 Not Available sole hernandez [address], [place], [address], 12/08/2022 19:07:12 12/09/1912/08/2022 urina lysis , dipst ick Unknown Analyte 0.2 E.U./d L Not Available [facility] [address], [place], [address], 12/08/2022 19:07:12 12/09/1912/08/2022 urina lysis , dipst ick Unknown Analyte Normal = Negati ve Not Available sole hernandez [address], [place], [address], 12/08/2022 19:07:12 12/09/19 23 12/08/2022 urina lysis , dipst ick Unknown Analyte Negati ve Not Available [address] hernandez [address], [address], 12/08/2022 19:07:12 12/09/19 23 12/08/2022 urina lysis , dipst ick Unknown Analyte Normal = Negati ve Not Available [address] hernandez [address], [address], 12/08/2022 19:07:12 12/09/19 23 12/08/2022 urina lysis , dipst ick Unknown Analyte Negati ve Not Available [address] hernandez [address], [address], 12/08/2022 19:07:12 Result Notes None recorded. Problems No Known Problems Medical Equipment None Reported. Allergies No known drug allergies Medications Not known to be on any medication Vitals Date Recorded Body height Body mass index (BMI) Body weight Pain severity - 0-10 verbal numeric rating [Score] - Reported Respiratory rate Body temperature Oxygen saturation Heart rate Systolic And Diastolic Provider Name and Address Organization Details Last Updated DateTime 160.02 cm 23.9 kg/m2 46026.9 7 g 6 18 /min 97.3 [degF] 99 % 66 /min 117/72 mm[Hg] JAMES ESCUDERO PA - [facility] 19:04:24 Social History Question Answer Notes LastModified by [employer] Details LastModified Time Tobacco Smoking Status Current Some Day Smoker JAMES sherwood PA - [facility] 12/08/2022 19:03:17 How Much Tobacco Do You Smoke? 0.5 PPD 4-5 Cigarettes A Day Information not available 12/08/2022 Have You Recently Traveled Abroad? No Information not available 12/08/2022 Sex: Unknown Functional Status Question Answer Note LastModified by [employer] Details LastModified Time Do you use any illicit or recreational drugs? No Information not available 12/08/2022 Do you or have you ever used any other forms of tobacco or nicotine? No Information not available 12/08/2022 What is your level of alcohol consumption? None Information not available 12/08/2022 Mental Status None recorded. Family History Relationship [...] Organization Details Recorded Time Tdap 05/04/2014 completed MELANY Palomares - [facility] 12/08/2022 19:01:33 Past Encounters Encounter ID Performer Location Encounter Start Date Encounter Closed Date Diagnosis/Indication Diagnosis SNOMED-CT Code Diagnosis ICD10 Code Diagnosis IMO Codes Diagnosis Note [id number] [address] [address] [address] [address] [place] [address] 11/16/2019 14:48:45 11/16/2019 15:19:41 [id number] [address] [place] [address] 11/05/2020 11:45:10 11/05/2020 12:15:18 [id number] [address] [place] [address] 09/08/2018 13:41:36 09/08/2018 14:58:47 [id number] [address] [place] [address] 12/20/2021 10:48:42 12/20/2021 12:55:00 [id number] [address] [place] [address] 11/09/2021 12:23:42 11/09/2021 13:42:04 [id number] [address] [place] [address] 01/20/2019 16:48:17 01/20/2019 17:12:24 [id number] [address] [place] [address] 02/10/2019 10:06:46 02/10/2019 10:21:26 [id number] [address] [place] [address] 03/04/2018 08:15:01 03/04/2018 08:52:23 [id number] [address] [place] [address] 09/30/2018 10:32:26 09/30/2018 11:28:21 [id number] [address] [place] [address] 07/04/2020 13:19:06 07/04/2020 15:06:29 [id number] [address] [place] [address] 10/10/2019 16:49:25 10/10/2019 17:55:31 [id number] [address] [place] [address] 01/20/2022 08:19:21 01/20/2022 09:27:47 [id number] [address] [place] [address] 09/23/2018 17:21:04 09/23/2018 17:48:42 [id number] Rajinder Berry NP [address] [place] [address] 12/08/2022 17:27:14 12/08/2022 19:32:02 Abdominal pain 26867407 R10.9 Health Concerns Section Related Observation LastModified by Organization Detai ls LastModified Time None Recorded Concern Status LastModified by Organization Details LastModified Time None Recorded Advance Directives Directive None Recorded Payers Insurance Date Sequence Insurance Name Policy Number Policy Kee Covered Member ID Kee Member ID Guarantor Name 03/03/2023 1 [facility] PLAN (MEDICAID HMO) [place] Smitha Martinez [id number] Smitha Martinez Notes Date Note Type Note Provider Name and Address Organization Details Recorded Time 12/08/2022 text/html Nausea UCReporte d by PatientHPIFor quality, patient reportsworsening. For associated symptoms, patient reportsabdominal painbut reportsno excess gas,no fever,no cholesterol issues,no diarrhea,no dry heaves,no heartburn,no fatigue,no weakness,no weight loss,no weight gain,no muscle aches,no muscle weakness,no nutrient deficiency, andno change in bowel/bladder habits. For source of patient information, patient reportspatient arrived at urgent care ambulatory. For location, patient reportsdiffuse. For severity, patient reportsmild. For duration, patient reportspresent for 2-4 weeks. For onset/timing, patient reportsgradual onsetandstill present. For context, patient reportsno drug/alcohol abuse,no one else with similar symptoms,no recent camping,no recent picnic,no possible food sources,no well water, andno foreign travel. For alleviating factors, patient reportsnothing helps. For aggravating factors, patient reportsnothing makes it worse. Rajinder Berry NP [address] [place], [address], PA - [facility] 12/08/2022 19:33:51 OBGyn Episode No OBEpisode recorded.
--- OUTSIDE RECORDS SUMMARY | 2025-08-31 17:36 | XMS_ITS | Clinical Summary ---
Author Organization [facility] Address [address] [place] [address] Phone Care Team Providers Care Grades 1 Thru 6 Visiting Teacher Name Role Phone Jose Cleary MD Primary [...] PAP SMEAR 1999 MAMMOGRAM 2018 COLOGUARD 2023 FIT TEST 2023 FOBT 2023 SIGMOIDOSCOPY 2023 VIRTUAL COLONOSCOPY 2023 INFLUENZA VACCINE (#1) 2025 COVID-19 VACCINE ( - 2024-2 6 season) 2025 Adult Td,Tdap Booster 07/10/2025 07/10/2015 , 05/04/2014 COLONOSCOPY 07/14/2029 09/25/2016 COLORECTAL CANCER SCREENING 07/14/2029 HEPATITIS A VACCINES Aged Out No long [...] this topic Medical Devices Not on file Procedures Procedure Name Priority Date/Time Associated Diagnosis Comments COLONOSCOPY FOR RESULT ENTRY ONLY Routine 09/25/2016 from Last 3 Months or Most Recently Relevant to Health Maintenance Results * COLONOSCOPY FOR RESULT ENTRY ONLY (09/25/2016) Colonoscopy External Historical Provider HEALTH MAINTENANCE Final Result from Last 3 Months or Most Recently Relevant to Health Maintenance Insurance [facility] [place] [facility] [place] [facility] [place] [address] [place] [address] [facility] [address] [place] [address] [address] [place] [address] [facility] Care Teams Grades 1 Thru 6 Visiting Teacher Relationship Specialty Start Date End Date Jose Cleary MD PCP - General Internal Medicine 03/03/18 Additional Source Comments The information contained in this document represents components of the legal health record. It is not the complete legal health record.[facility]
--- OUTSIDE RECORDS SUMMARY | 2025-08-31 17:36 | XMS_ITS | Patient Health Record ---
Author Organization 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 Problem Irritable bowel syndrome characterized by constipation (044439590) Irritable bowel syndrome with constipation (K58.1) Active confirmed Problem COVID-19 (847027860) COVID-19 (U07.1) Active confirmed Plan Of Treatment Pending Test Test Name Order Date THIN PREP,HPV,MARIZA IF HPV+/CYT-,CT/GC(>2 9YR)(DIAG) 03/21/2019 MM Digital Screening Mammogram 3D 2022 MM Digital Screening Mammogram 3D 2018 Next Appt Details Provider Name:JAMES Terrell, 10/26/2025 11:00:00 AM, [address], [address], [place], [address], Medical (General) History Medical History History ICD Code Herpesviral vulvovaginitis A60.04 Rheumatoid arthritis with rheumatoid fac tor, unspecified M05.9 COVID-19 U07.1 Irritable bowel syndrome with constipati on K58.1 Surgical History Surgery Date(Month/Year) Breast Augmentation 2013 Colonoscopy - ?[id number]? Hospitalization History Reason Date(Month/Year) 2 Vaginal Deliveries See Surgical Hx
== END 2025-08-31 13:27 | disposition home or self-care (01) ==
LOC: HO.US 13:26
PROVIDERS: PCP Internal Medicine; Visit Provider Internal Medicine
DX: T17.308A Unspecified foreign body in larynx causing other injury, initial encounter (principal)
CPT/HCPCS: 76536

== ENCOUNTER → 2025-08-31 13:30 | Outpatient (BNV) | payer OTHER, SELFPAY | PROVIDERS: PCP Internal Medicine; Visit Provider Radiology Body Imaging | DX: E04.2 Nontoxic multinodular goiter (principal) | CPT/HCPCS: 76536 ==